=== PATIENT | female | born 1940 | race Caucasian/White ===

== ENCOUNTER 2018-01-08 10:39 | Inpatient (IN) | payer OTHER, MEDICARE ==
[~2018-01-08] VITALS: Ht 152.4 cm; Wt 83.9 kg
[~2018-01-08 10:39] MED LIST: ALLOPURINOL100 M1 PO; AMLODIPINE BES2.5 M1 PO; AUGMENTIN 875 M1 TAB PO; AVAPRO300 M1 PO; CARVEDILOL12.5 M1 PO; CARVEDILOL25 M1 PO; CARVEDILOL3.125 MG PO; COREG 3.125M3.125 MG PO; COREG 6.256.25 MG PO; DESITIN MAXIMUM S40% TOP; ELIQUIS5 M1 PO; KEY-E1 CRE PO; LASIX20 MG PO; LASIX40 M1 PO; LEVOTHYROXINE0.15 M1 PO; LEVOTHYROXINE175 MCG PO; LIPITOR40 M1 PO; MYCOSTATIN POWD15 GM TOP; NORVASC5 M1 PO; OMEPRAZOLE20 M2 PO; OMEPRAZOLE20 MG PO; POTASSIUM CHLO20 ME2 PO; TYLENOL XSTR500 MG PO; XARELTO20 M2 PO
[2018-01-08 11:30] LABS: ABSOLUTE BASOPHIL COUNT 0 /CUMM (0.0-0.2); ABSOLUTE EOSINOPHIL COUNT 0 /CUMM (0.0-0.7); ABSOLUTE GRANULOCYTE CT 3.4 /CUMM (1.4-6.5); ABSOLUTE LYMPH COUNT 1.3 /CUMM (1.2-3.4); ABSOLUTE MONOCYTE COUNT 0.5 /CUMM (0.10-0.60); BASOPHIL % 0.9 % (0.0-2.0); EOSINOPHIL % 0.3 % (0-5); GRANULOCYTE % 65.6 % (42.2-75.2); HEMATOCRIT 34.3 % (37-47); MEAN CORPUSCULAR HGB CONC 32.5 G/DL (33.0-37.0); MEAN CORPUSCULAR VOLUME 92.2 FL (81.0-99.0); MEAN PLATELET VOLUME 8.7 FL (7.4-10.4); PLATELET COUNT 173 /CUMM (130-400); RBC DISTRIBUTION WIDTH 19.2 % (11.5-14.5); RED BLOOD CELL CT 3.72 /CUMM (4.20-5.40); WHITE BLOOD CELL COUNT 5.2 /CUMM (4.8-10.8)
[2018-01-08] MEDS ORDERED: ATORVASTATIN CA40 M1 PO (12:06)
--- NOTE | 2018-01-08 12:12 | ED CARDIAC/CP/PALPITATIONS ---
History of Present Illness General Chief Complaint: Chest Pain Stated Complaint: BIBA CP SINCE SEP Source: patient, old records, friend (engagement mgr) Exam Limitations: no limitations Vital Signs & Intake/Output Vital Signs & Intake/Output Vital Signs Date Time Temp Pulse Resp B/P B/P Pulse O2 O2 Flow FiO2 Mean Ox Delivery Rate 01/08 1433 97.1 93 18 142/94 96 Room Air 01/08 1059 98.2 89 16 139/95 97 Room Air Allergies Coded Allergies: Estrogens ("GET WACKY" 01/26/16) Reconcile Medications Allopurinol 100 MG TABLET 1 TAB PO DAILY KIDNEY STONES (Reported) Amlodipine Besylate 2.5 MG TABLET 1 TAB PO QPM Hypertension (Reported) Apixaban (Eliquis) 5 MG TABLET 1 TAB PO BID PE Atorvastatin Calcium (Lipitor) 40 MG TABLET 1 TAB PO DAILY CHOLESTEROL ( Reported) Carvedilol 25 MG TABLET 25 MG PO BID a-fib Furosemide (Lasix) 40 MG TABLET 1 TAB PO DAILY WATER RETENTION (Reported) Irbesartan (Avapro) 300 MG TABLET 1 TAB PO DAILY HEART (Reported) Levothyroxine Sodium 175 MCG TABLET 1 TAB PO DAILY AC THYROID (Reported) Omeprazole 20 MG CAPSULE.DR 1 CAP PO DAILY ACID REFLUX (Reported) Core Measure Meds Pre-Hospital Eliquis Triage Note: PT BIBA FROM RIGHT SIDED CP. STATES THAT THE PAIN HAS BEEN PERSISTENT SINCE SEPTEMBER AND THAT THEY CONTRIBUTE IT TO HER GALLBLADDER. FELT SLIGHT SOB INITIALLY WITH EMS, PUT ON 2L O2 VIA NC. RA SAT 97%. PA STUDENT TO [facility] ON ARRIVAL. Triage Nurses Notes Reviewed? yes Onset: 4 months Duration: week(s):, continues in ED, intermittent Timing: recent history Quality/Severity: mild, moderate, pressure Location: epigastric Radiation: no radiation Activities at Onset: none Modifying Factors: Improves With: rest. Nitro Today/Relief: no nitro taken today Aspirin Today: no aspirin today Associated Symptoms: abdominal pain LMP (ages 10-50): post menopausal : No Patient currently breastfeeds: No HPI: 3 months prior to admission patient complains of episodic intermittent right lower chest / right upper quadrant pain radiating to right shoulder described as achy moderate to severe associated with increased gas. She denies fever chills nausea vomiting diarrhea chest pain cough shortness of breath headache dysuria rash bleeding. Past History Travel History Traveled to [place] past 21 day No Medical History Any Pertinent Medical History? 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 MOTHER FH: atrial fibrillation Relation not specified for: *No pertinent family history Hx Contributory? No Review of Systems Review of Systems Constitutional: Reports: no symptoms. EENTM: Reports: no symptoms. Respiratory: Reports: no symptoms. Cardiovascular: Reports: see HPI, chest pain. GI: Reports: see HPI, abdominal pain. Genitourinary: Reports: no symptoms. Musculoskeletal: Reports: no symptoms. Skin: Reports: no symptoms. Neurological/Psychological: Reports: no symptoms. Hematologic/Endocrine: Reports: no symptoms. Immunologic/Allergic: Reports: no symptoms. All Other Systems: Reviewed and Negative Physical Exam Physical Exam General Appearance: well developed/nourished, alert, awake, anxious, moderate distress, obese Head: atraumatic, normal appearance Eyes: Bilateral: normal appearance, PERRL, EOMI. Ears, Nose, Throat: normal pharynx, normal ENT inspection, hearing grossly normal Neck: normal inspection, supple, full range of motion, no midline tenderness Respiratory: chest non-tender, no respiratory distress, quiet respiration, decreased breath sounds, rhonchi Cardiovascular: normal peripheral pulses, irregularly irregular, norml femoral pulses equa Peripheral Pulses: 4+ carotid (R), 4+ carotid (L) Gastrointestinal: soft, abnormal bowel sounds, tenderness Back: normal inspection, normal range of motion, no vertebral tenderness Extremities: normal inspection, normal capillary refill, normal range of motion, no edema, no ligament instability Neurologic/Psych: no motor/sensory deficits, awake, alert, oriented x 3, normal mood/affect, scrap wheeler II-XII nml as tested Reflexes: 2+: bicep (R), bicep (L). Skin: intact, normal color, warm/dry Core Measures ACS in differential dx? Yes No ASA d/t Pharmacological CI CVA/TIA Diagnosis No Sepsis Present: No Sepsis Focused Exam Completed? No Progress Differential Diagnosis: AMI, CHF/pulm edema, musculoskeletal pain, pancreatitis, pneumonia, pneumothorax Plan of Care: Orders Procedure Date/time Status Heart Healthy Diet 01/08 D Active Pathway - chart 01/08 1812 Active House Staff 01/08 1812 Active Patient Data 01/08 1812 Active Code Status 01/08 1812 Active Add-on Test (ER Only) 01/08 1735 Active Patient Data 01/08 1718 Active OXYGEN SETUP (GEN) 01/08 1643 Active Saline Lock 01/08 1643 Active Admit to inpatient 01/08 1643 Active Vital Signs 01/08 1643 Active Activity/Ambulation 01/08 1643 Active Code Status 01/08 1643 Complete BLOOD CULTURE 01/08 1640 Active Intake & Output 01/08 1203 Active THYROID STIMULATING HORMONE 01/08 1115 Active PHOSPHORUS 01/08 1115 Active MAGNESIUM 01/08 1115 Active B-TYPE NATRIURETIC PEP (BNP) 01/08 1115 Active Add-on Test (ER Only) 01/08 1104 Active TROPONIN LEVEL 01/08 1048 Active LIPASE 01/08 1048 Active COMPREHENSIVE METABOLIC PANEL 01/08 1048 Active CBC WITHOUT DIFFERENTIAL 01/08 1048 Complete EKG 01/08 1048 Active VTE Mechanical Prophylaxis 01/08 UNK Active Current Medications Sig/Nyasia Start time Last Medication Dose Stop Time Status Admin Famotidine 20 MG ONCE ONE 01/08 1115 CAN (Pepcid) 01/08 1116 Metoclopramide HCl 5 MG ONCE ONE 01/08 1115 CAN (Reglan) 01/08 1116 Laboratory Tests 01/08/18 1115: Anion Gap 8, Estimated GFR > 60, BUN/Creatinine Ratio 32.5 H, Glucose 97, Calcium 8.6, Phosphorus 3.9, Magnesium 1.6, Total Bilirubin 0.5, AST 15, ALT 20, Alkaline Phosphatase 98, Troponin I < 0.01, Etk-R-[id number] Pept Pending, Total Protein 6.6, Albumin 3.3 L, Globulin 3.3, Albumin/Globulin Ratio 1.0 L, Lipase 109, TSH Pending, CBC w Diff NO MAN DIFF REQ, RBC 3.72 L, MCV 92.2, MCH 30.0, MCHC 32.5 L, RDW 19.2 H, MPV 8.7, Gran % 65.6, Lymphocytes % 24.0, Monocytes % 9.2, Eosinophils % 0.3, Basophils % 0.9, Absolute Granulocytes 3.4, Absolute Lymphocytes 1.3, Absolute Monocytes 0.5, Absolute Eosinophils 0, Absolute Basophils 0 Microbiology 01/08 1715 BLOOD: Blood Culture - RECD 01/08 165 BLOOD: Blood Culture - RECD Diagnostic Imaging: Viewed by Me: Radiology Read. Discussed w/RAD: Radiology Read. CXR Impression: Small right hydropneumothorax. Trace left basilar atelectasis. Initial ED EKG: AFIB, no ST T wave changes Prior EKG: unchanged Rhythm Strip: atrial fibrillation Comments: Repeat CXR without change in PTx. Departure Departure Disposition: STILL A PATIENT Condition: Stable Clinical Impression Primary Impression: Hydropneumothorax Referrals: Kathy CAPUTO,Josiah Montejo (PCP/Family) Departure Forms: Customer Survey General Discharge Information Admission Note Spoke With: Jayant CAPUTO,Odilia Del Cid Documentation of Exam: Documentation of any treatments & extenuating circumstances including Concerns Regarding Discharge (functional status, medication knowledge or non-compliance, living conditions, etc.) that warrant an admission rather than observation: IV antibiotics follow cultures thoracentesis pulmonary evaluation medication adjustment continuing care discharge planning Critical Care Note Critical Care Note Critical Care Time: non-applicable
--- NOTE | 2018-01-08 12:35 | RADIOLOGY REPORT ---
EXAMINATION: XR CHEST CLINICAL INFORMATION: Chest pain COMPARISON: 09/28/2017 TECHNIQUE: 2 views of the chest were obtained. FINDINGS: There is a small right apical pneumothorax. There is a small right basilar pleural effusion, likely with a component of adjacent atelectasis. Right basilar aeration has overall improved from 09/28/2017. There is trace linear atelectasis at the left lung base. No overt pulmonary edema. The cardiac silhouette is enlarged. No acute osseous findings are seen. IMPRESSION: Small right hydropneumothorax. Trace left basilar atelectasis. This critical result was discussed with Vitor Awad on 01/08/2018 12:31 PM, and it was ascertained that the content and urgency of the report was understood at the time of direct communication.
--- NOTE | 2018-01-08 16:10 | RADIOLOGY REPORT ---
EXAMINATION: XR CHEST CLINICAL INFORMATION: Follow-up right apical pneumothorax COMPARISON: Chest x-ray from earlier today TECHNIQUE: 2 views of the chest were obtained. FINDINGS: There is a redemonstrated small right apical pneumothorax, without significant change from today's earlier exam. Small right basilar pleural effusion is also seen, with overall findings consistent with hydropneumothorax. Subsegmental atelectasis is present at the left lung base. No overt pulmonary edema. The cardiac silhouette remains enlarged. No acute osseous findings are seen. IMPRESSION: Small right hydropneumothorax, without significant change from today's earlier exam.
--- NOTE | 2018-01-08 17:30 | History & Physical ---
Bryant Randle MD 01/08/18 5145: General Information and HPI MD Statement: I have seen and personally examined BRITTANY STOVALL and documented this H&P. The patient is a 77 year old F who presented with a patient stated chief complaint of right sided chest pain. Source of Information: patient, old records Exam Limitations: no limitations History of Present Illness: 77 year old female with past medical history significant for paroxysmal atrial fibrillation on Xarelto, HFpEF, ESTEFANIA on CPAP, moderate TR and pulmonary hypertension, HTN, HLD, GERD, and tongue cancer s/p resection and chemoradiotherapy (Dr. Silva ) presented with sudden onset right sided chest pain yesterday. The patient was last hospitalized in September 2017 with sepsis secondary to severe acute on chronic cholecystitis with subhepatic abscess found between the gallbladder and liver during cholecystectomy, afib with RVR, and acute right pulmonary embolism. After discharge the patient went to rehabiliation at [facility] and was feeling better subjectively. The patient was then treated there for a right sided pneumonia in October 2017. The patient then returned to her usual state of health until yesterday afternoon when she suddenly developed right sided chest pain while sitting and watching. It was sudden onset, intermittent, 5-6 in severity, aching and squeezing, and radiating up towards her right shoulder. Her pain was aggravated by deep respiration and moderately relieved with Tylenol. She was able to take tylenol in the evening and go to sleep. At 1AM, she woke up with the pain, took another dose of tylenol and returned to bed. In the morning, her pain had become severe, 9/10. Her home health aide had her call her it solutions sales consultant, Dr. Abdias Sweeney, and then she came to the ED for evaluation. Her pain was not associated with exertion, position, or eating. She did report some mild headache and palpitations. She does report some new dyspnea. Review of systems is otherwise negative. In the ED, her vitals were normal. She was placed on 2L NC for comfort. Her chest x-ray showed a small right hydropneumothorax. Labs were unremarkable. She was treated with ceftriaxone, azithromycin, tramadol, reglan, and pepcid. Allergies/Medications Allergies: Coded Allergies: Estrogens ("GET WACKY" 01/26/16) Home Med list Allopurinol 100 MG TABLET 1 TAB PO DAILY KIDNEY STONES (Reported) Amlodipine Besylate 2.5 MG TABLET 1 TAB PO QPM Hypertension (Reported) Apixaban (Eliquis) 5 MG TABLET 1 TAB PO BID PE Atorvastatin Calcium (Lipitor) 40 MG TABLET 1 TAB PO DAILY CHOLESTEROL ( Reported) Carvedilol 25 MG TABLET 25 MG PO BID a-fib Furosemide (Lasix) 40 MG TABLET 1 TAB PO DAILY WATER RETENTION (Reported) Irbesartan (Avapro) 300 MG TABLET 1 TAB PO DAILY HEART (Reported) Levothyroxine Sodium 175 MCG TABLET 1 TAB PO DAILY AC THYROID (Reported) Omeprazole 20 MG CAPSULE.DR 1 CAP PO DAILY ACID REFLUX (Reported) Compliance With Home Meds: GOOD Past History Travel History Traveled to [place] past 21 day No Medical History Neurological: NONE EENT: NONE Cardiovascular: AFIB, CHF, hypertension, hyperlipidemia Respiratory: obstructive sleep apnea Gastrointestinal: GERD Hepatic: hepatic steatosis Renal: NONE Musculoskeletal: NONE Psychiatric: NONE Endocrine: hypothyroidism Blood Disorders: NONE 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 MOTHER FH: atrial fibrillation Relation not specified for: *No pertinent family history Psychosocial History Services at Home: None Functional Ability ADLs Independent: dressing, eating, toileting, bathing. Ambulation: independent, cane Review of Systems Review of Systems Constitutional: Denies: chills, diaphoresis, fever. EENTM: Reports: no symptoms. Cardiovascular: Reports: chest pain, palpitations, peripheral edema. Respiratory: Reports: cough, short of breath. Denies: hemoptysis, orthopnea, sputum production. GI: Reports: bloating. Denies: constipation, diarrhea, melena, nausea, vomiting. Genitourinary: Reports: no symptoms. Musculoskeletal: Reports: no symptoms. Skin: Reports: no symptoms. Neurological/Psychological: Reports: no symptoms. Hematologic/Endocrine: Reports: no symptoms. Immunologic/Allergic: Reports: no symptoms. All Other Systems: Reviewed and Negative Exam & Diagnostic Data Last 24 Hrs of Vital Signs/I&O Vital Signs Date Time Temp Pulse Resp B/P B/P Pulse O2 O2 Flow FiO2 Mean Ox Delivery Rate 01/08 1433 97.1 93 18 142/94 96 Room Air 01/08 1059 98.2 89 16 139/95 97 Room Air Physical Exam General Appearance Alert, Oriented X3, Cooperative, No Acute Distress Cardiovascular Normal S1, Normal S2, No Murmurs, irregularly irregular Lungs diminished breath sounds particularly bibasilar Abdomen Normal Bowel Sounds, Soft, No Tenderness, No Masses Extremities No Clubbing, No Cyanosis, Normal Pulses, 1+ pitting edema b/l Last 24 Hrs of Labs/Linus: Laboratory Tests 01/08/18 1115: Anion Gap 8, Estimated GFR > 60, BUN/Creatinine Ratio 32.5 H, Glucose 97, Calcium 8.6, Phosphorus 3.9, Magnesium 1.6, Total Bilirubin 0.5, AST 15, ALT 20, Alkaline Phosphatase 98, Troponin I < 0.01, Fzp-Q-Resrezdmlpt Pept 3660 H, Total Protein 6.6, Albumin 3.3 L, Globulin 3.3, Albumin/Globulin Ratio 1.0 L, Lipase 109, TSH Pending, CBC w Diff NO MAN DIFF REQ, RBC 3.72 L, MCV 92.2, MCH 30.0, MCHC 32.5 L, RDW 19.2 H, MPV 8.7, Gran % 65.6, Lymphocytes % 24.0, Monocytes % 9.2, Eosinophils % 0.3, Basophils % 0.9, Absolute Granulocytes 3.4, Absolute Lymphocytes 1.3, Absolute Monocytes 0.5, Absolute Eosinophils 0, Absolute Basophils 0 Microbiology 01/08 1715 BLOOD: Blood Culture - RECD 01/08 1655 BLOOD: Blood Culture - RECD Diagnostic Data EKG Results EKG LAFB, afib HR 88 qtc 470 CXR Results There is a redemonstrated small right apical pneumothorax, without significant change from today's earlier exam. Small right basilar pleural effusion is also seen, with overall findings consistent with hydropneumothorax. Subsegmental atelectasis is present at the left lung base. No overt pulmonary edema. Other Results Technically difficult study. Normal global left ventricular size, wall thickness, systolic function with no obvious regional wall motion abnormalities. Left ventricular ejection fraction is estimated at 55 %. Mild right atrial dilatation. Mild left atrial dilatation. Mild mitral stenosis. Mild by limited Echo. Moderate tricuspid regurgitation. Right ventricular systolic pressure estimated to be elevated at > 55 mmHg. Assessment/Plan Assessment: 77 year old female with past medical history significant for paroxysmal atrial fibrillation on Xarelto, HFpEF, ESTEFANIA on CPAP, moderate TR and pulmonary hypertension, HTN, HLD, GERD, and tongue cancer s/p resection and chemoradiotherapy presented with sudden onset right sided chest pain yesterday. Chest pain: Small right hydropneumothorax on chest x-ray Troponin negative, no ischemic EKG changes, repeat to rule out myocardial ischemia h/o malignancy with abnormal chest CT in 09/2017 h/o subhepatic abscess/cholecystitis s/p laparoscopic cholecystectomy Evaluate with CT Chest with IV contrast Possible mets? h/o malignancy Consult CT surgery for possible thoracentesis and cytology Previous CT showed several subcentimeter nodules and right pulmonary embolism PE less likely with anticoagulation, but check LE doppler because of asymmetric edema Consider holding eliquis or converting to heparin gtt if patient will need thoracentesis TRC evaluation, h/o smoking, quit 1983 ESTEFANIA: Avoid CPAP for now given pneumothorax Pulmonology consult HFpEF: Continue lasix, coreg, tanya, HTN: Continue meds as above Hypothyroidism: Continue synthroid Atrial fibrillation: Contine eliquis and coreg HLD: Continue statin therapy Heart healthy diet DVT ppx-on eliquis Full code As Ranked By This Provider Problem List: 1. Hydropneumothorax 2. Dyspnea 3. Pulmonary embolism 4. Subhepatic abscess 5. S/P cholecystectomy Core Measures/Misc (07/30) Acute Coronary Syndrome ACS Diagnosis: No Congestive Heart Failure Congestive Heart Failure Diagnosis No Cerebrovascular Accident CVA/TIA Diagnosis: No VTE (View Protocol) VTE Risk Factors Age>40 No Mechanical VTE Prophylaxis d/t N/A MechProphylax Ordered No VTE Pharm Prophylaxis d/t NA PharmProphylax ordered Sepsis (View protocol) Sepsis Present: No Abdirahman CAPUTO,[facility] 01/08/18 1813: Resident Review Statement Resident Statement: examined this patient, discussed with ad operations intern, agreed with ad operations intern Other Findings: 76-year-old female with a PMH of A. 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 The patient was treated for pneumonia on October 2017, her symptom improved and she was symptom-free until yesterday when she started to complain of anterior lower right chest pain, the pain was tolerable with Tylenol, so patient did not seek medical attention. Earlier this morning patient woke up with 9/10, aching, squeezing, anterior right sided chest pain. Pain partially relieved by Tylenol and worsen by deep breath. She reports mild headache, dyspnea, and palpitation. The rest of review of system was negative. The patient denies any recent trauma, cough, intubation, or procedures. On admission patient was afebrile, hemodynamically stable, saturating upper 90s on room air. Labs were significant for Hemoglobin 11, potassium 3.5, BNP 3660. Chest x-ray revealed Small right hydropneumothorax. Assessment: 76-year-old female who presented with 1 day of right side chest pain was found to have small right lung hydropneumothorax. She is hemodynamically stable. The patient had history of tongue squamous cell carcinoma. She also had a history of multiple lung nodules that was seen [address] and was recommended to repeat CT in 6 months. The patient also had a history of obstructive sleep apnea for which she uses CPAP at night. The cause for pneumothorax is not currently clear, however she had a multiple risk factor including recent pneumonia, lung nodules, and nocturnal CPAP. Plan: #Pneumothorax * Patient will be monitoring general medicine floor * We will hold nocturnal CPAP and start nasal oxygen * We will repeat chest CT to follow-up nodules * We will consult cardiothoracic surgery * We will consult pulmonology(Dr. Calero) #Questionable lower extremity DVT * We will order lower extremity Doppler #For chronic conditions including A. fib, hypothyroidism, hypertension, hyperlipidemia, gout and GERD. * We will continue home medication including * Apixaban * carvedilol * Levothyroxin (we will check TSH) * TANYA inhibitor * Omeprazole * Statin Brannon CAPUTO, [facility] 01/09/18 0218: Attending MD Review Statement Attending Statement Attending MD Statement: examined this patient, discuss w/resident/PA/ADVANCED PRACTICE PROFESSIONAL, agreed w/resident/PA/ADVANCED PRACTICE PROFESSIONAL, reviewed images, amended to note Attending Assessment/Plan: 77 yo F with h/o Afib/ PE on eliquis, ex-smoker, HfpEF, ESTEFANIA on CPAP, chronic hypercarbia, tongue SSC s/p resection and chemoradiation (2008-), is here for right sided pleuritic chest pain radiating to the shoulder, associated with dyspnea that started 1 day prior to admission. She denies cough, URI symptoms, wheezing, palpitations or lightheadedness. Last admitted to [place] (Jul 2017) for cholecystitis with abscess, complicated by Afib and PE, recovered at short term rehab and most recently treated for a pneumonia (outpatient) with antibiotics. Patient was sent to CT and she became dyspenic and hypoxic to 88% RA --> 95% on 2L. She reported she could not lay down flat for too long, she usually sleeps with 2 pillows. She was also hypertensive to 154/90, HR in 120-130's. Vitals: afebrile, HR 90-120's, BP 154/90, sats 96% on 2L. Exam: AAO, in mild respiratory distress, MMM, Neck supple, Chest b/l reduced air entry but no wheeze or rhonchi, Heart S1S2 irregularly irregular, Abd soft, NT. LE 1+ pedal edema L>R. Labs: bicarb 36, trop neg, proBNP 3660. LE doppler: no DVT. CXR: small right hydropneumothorax. CT chest: trace right pneumothorax, small right pleural effusion+, left pleural effusion has resolved. Mild to mdoerate centrilobular emphysema and few pulmonary nodules. EKG: Afib @ 88, nonspecific T wave changes, Qtc 470. Repeat EKG at 9 pm HR 135 Afib with RVR. Echo (2017): EF 55%, mild MS, moderate TR, elevated RVSP. Assessment and plan: 1. Acute hypoxic respiratory failure 2. Afib with RVR transient resolved 3. Right sided chest pain 4. Right small hydropneumothorax 2/2 bleb 5. Emphysema with no evidence of exacerbation 6. HfpEF and ESTEFANIA on CPAP 7. Lung nodules 8. Elevated proBNP but no evidence of CHF exacerbation - Admit to Telemetry - Monitor for arrhythmias - Serial EKG and troponin to rule out ACS - No need to repeat Echo - Carvedilol was resumed and her HR settled down to 90-100's - If HR persistently elevated at >110's will consider Cardizem drip - Check TSH and free T4 - Consult Cardio (Dr. Brittaney Adams) - Continue lasix at home dose - Consult Pulm (Dr. Varela) and CT surgery (Dr. Cantu) - Hold off on CPAP tonight until cleared by Pulm. - Continue nasal oxygen - TRC nebs - No need for antibiotics - Fluids were initially ordered as she received contrast for CT, however this was discontinued to avoid exacerbating her CHF DVT ppx Maranda. Full code.
--- NOTE | 2018-01-08 19:25 | Admission Certification ---
Admission Certification Certification Statement - As attending physician, I certify that at the time of - admission, based on clinical presentation, severity of - symptoms, need for further diagnostic testing and - therapeutic interventions, and risk of adverse outcomes - without in-hospital treatment, in my clinical assessment, - this patient requires an acute hospital stay for a minimum - of two nights or longer. I have also considered psychsocial - factors such as support system, advanced age, financial - issues, cognitive issues, and failed out-patient treatments, - past re-admission history, safety of patient, and lack of - compliance as applicable. Specific rationale supporting this admission is: Right sided chest pain, right apical pneumothorax, right pleural effusion needs further evaluation, Pulm and CT surgery consults.
--- NOTE | 2018-01-08 21:30 | CT SCAN REPORT ---
EXAMINATION: CT CHEST WITH CONTRAST CLINICAL INFORMATION: Pneumothorax and follow-up lung mass. COMPARISON: Multiple prior studies, the most recent dated 09/28/2017. TECHNIQUE: Multidetector volumetric CT imaging of the chest was obtained after the administration of 95 mL of Optiray 320 intravenous contrast without immediate adverse reactions. Axial MIP volume rendering provided. Sagittal and coronal reformatted images were obtained. DLP: 371 mGy-cm FINDINGS: LUNGS: There is a trace right pneumothorax possibly related to a bleb or recent biopsy. There is [id number] centrilobular emphysema. There are several pulmonary nodules including an 8 x 4 mm nodule in the anterior aspect of the right upper lobe and a 7 x 4 mm nodule in the right upper lobe near the minor fissure which appears similar; a 7 mm ground-glass nodule at the left lung apex which is less conspicuous; and a few smaller parenchymal nodules which appears similar. Atelectasis or ill-defined areas of consolidation at the lung bases have improved. MEDIASTINUM: Mild cardiomegaly with biatrial enlargement. No pericardial effusion. PLEURA: There is a small right pleural effusion which is similar. The left pleural effusion has resolved. AXILLA: No lymphadenopathy. UPPER ABDOMEN: Unremarkable. OSSEOUS STRUCTURES: Unremarkable. IMPRESSION: 1. There is a trace right pneumothorax. 2. There is a small right pleural effusion which is similar. The left pleural effusion has resolved. Basilar atelectasis/consolidation is slightly improved. 3. There is [id number] centrilobular emphysema and a few pulmonary nodules as detailed in the comments, the majority of which appear stable. A ground-glass nodule at the left lung apex is less conspicuous.
[2018-01-08 22:37] VITALS: BP 128/70
--- NOTE | 2018-01-08 22:49 | ULTRASOUND REPORT ---
EXAMINATION: US TRIPLEX OF LOWER EXTREMITIES, BILATERAL CLINICAL INFORMATION: Bilateral lower extremity edema and swelling COMPARISON: None TECHNIQUE: Color-flow triplex imaging with spectral analysis and compression Doppler were performed on the bilateral lower extremities. FINDINGS: Respiratory variation, normal compression and augmented flow are noted throughout the lower extremities. The visualized common femoral vein, superficial femoral vein, profunda femoral vein, popliteal vein and midcalf peroneal and posterior tibial venous segments show no evidence of deep venous thrombosis. There is no Hinojosa's cyst. IMPRESSION: Normal triplex scan without evidence of deep venous thrombosis involving the bilateral lower extremities.
[2018-01-09 07:06] VITALS: BP 142/82
--- NOTE | 2018-01-09 07:29 | PN- Housestaff ---
Alex CAPUTO,[facility] 01/09/18 0728: Subjective Follow-up For: Pleuritic chest pain Right hydropneumothorax Complaints: pain scale (0-10) (4-5/10) Tele-Events Since Last Visit: Atrial fibrillation. Heart rate 70-90 beats minute. Had an episode of rapid ventricular rate in the ER on admission but no events overnight. Subjective: Ms. Pritchard complains of chest pain that she rates as 4/10 intensity in her right chest that is worse with deep inspiration. She denies shortness of breath, cough , fevers, chills or malaise. She denies palpitations, lightheadedness, but has orthopnea which is chronic and unchanged. Review of Systems Constitutional: Denies: chills, fever, malaise, weakness. EENTM: Denies: nasal congestion, epistaxis. Cardiovascular: Reports: chest pain. Denies: edema, palpitations, syncope. Respiratory: Denies: cough, hemoptysis, orthopnea, short of breath, sputum production. Gastrointestinal: Denies: abdominal pain, constipation, diarrhea, bloody stool, vomiting. Genitourinary: Denies: dysuria, frequency. Objective Last 24 Hrs of Vital Signs/I&O Vital Signs Date Time Temp Pulse Resp B/P B/P Pulse O2 O2 Flow FiO2 Mean Ox Delivery Rate 01/09 1431 97.8 90 20 138/90 99 Nasal 2.0L Cannula 01/09 1354 Nasal 2.0L Cannula 01/09 1218 86 150/80 01/09 0957 78 150/80 01/09 0800 Nasal 2.0L Cannula 01/09 0706 98.6 88 20 142/82 98 Nasal Cannula 01/08 2302 93 Nasal 2.0L Cannula 01/08 2237 98.0 103 20 128/70 91 01/08 2153 98.6 121 20 152/88 98 Nasal 2.0L Cannula 01/08 2106 98.2 86 20 154/90 01/08 2040 98.2 126 20 154/90 96 Nasal 2.0L Cannula 01/08 1930 98.5 105 18 155/88 94 Room Air Room Air Intake & Output 01/09 1600 01/09 0800 01/09 0000 Intake Total 560 150 Output Total 400 350 Balance 560 -250 -350 Intake, Oral 560 150 Output, Urine 400 350 Patient 185 lb Weight Weight Reported by Patient Measurement Method Physical Exam General Appearance: Alert, Oriented X3, Cooperative, No Acute Distress Skin: No Rashes, No Breakdown, No Significant Lesion Skin Temp/Moisture Exam: Warm/Dry Sepsis Skin Exam (color): Normal for Ethnicity HEENT: Atraumatic, PERRLA, EOMI, Mucous Membr. moist/pink Neck: Supple, No JVD, No thryomegaly Lymphatic: Cervical nl Cardiovascular: Regular Rate, Normal S1, Normal S2, No Murmurs Lungs: Clear to Auscultation, Normal Air Movement Abdomen: Normal Bowel Sounds, Soft, No Tenderness, No Hepatospenomegaly, No Masses Neurological: Normal Speech, Strength at 5/5 X4 Ext, Normal Tone, Cranial Nerves 3-12 NL Extremities: No Edema, Normal Pulses Vascular: Normal Pulses Current Medications: Current Medications Sig/Nyasia Start time Last Medication Dose Route Stop Time Status Admin Acetaminophen 650 MG Q4P PRN 01/09 0945 AC PO Allopurinol 100 MG DAILY 01/09 1000 AC 01/09 PO 0958 Apixaban 5 MG BID 01/08 2200 AC 01/09 PO 0957 Atorvastatin Calcium 40 MG 1700 01/09 1700 AC PO Azithromycin 500 MG ONCE ONE 01/08 1645 DC 01/08 Dextrose/Water 250 ML IV 01/08 1744 2030 Carvedilol 25 MG BID 01/08 2200 AC 01/09 PO 0957 Ceftriaxone Sodium 0 .STK-MED ONE 01/08 2026 DC .ROUTE Ceftriaxone Sodium 1,000 MG ONCE ONE 01/08 1645 DC 01/08 IV 01/08 1646 2030 Furosemide 40 MG DAILY 01/09 1000 AC 01/09 PO 0957 Levothyroxine Sodium 0.15 MG DAILY AC 01/10 0700 AC PO Levothyroxine Sodium 0.175 MG DAILY AC 01/09 0700 DC 01/09 PO 0532 Losartan Potassium 50 MG DAILY 01/09 1015 AC 01/09 PO 1218 Losartan Potassium 100 MG DAILY 01/09 1000 DC PO Morphine Sulfate 2 MG Q4P PRN 01/09 0945 AC IV Omeprazole 20 MG DAILY 01/09 1000 AC 01/09 PO 0533 Potassium Chloride 40 MEQ AT BEDTIME 01/09 2200 AC PO 01/09 2201 Potassium Chloride 60 MEQ ONCE ONE 01/09 1100 DC 01/09 PO 01/09 1101 1217 Sodium Chloride 500 ML ONCE ONE 01/08 2100 DC 01/08 IV 01/09 0659 2300 Sodium Chloride 500 ML BOLUS ONE 01/08 2030 CAN IV 01/09 0629 Last 24 Hrs of Lab/Linus Results Last 24 Hrs of Labs/Mics: Laboratory Tests 01/09/18 0619: Anion Gap 10, Estimated GFR > 60, BUN/Creatinine Ratio 27.1 H, Troponin I < 0.01, CBC w Diff NO MAN DIFF REQ, RBC 3.63 L, MCV 92.5, MCH 29.7, MCHC 32.1 L, RDW 19.9 H, MPV 9.2, Gran % 63.4, Lymphocytes % 25.5, Monocytes % 9.6 H, Eosinophils % 1.2, Basophils % 0.3, Absolute Granulocytes 3.3, Absolute Lymphocytes 1.3, Absolute Monocytes 0.5, Absolute Eosinophils 0.1, Absolute Basophils 0 01/08/18 2330: Troponin I < 0.01 Microbiology 01/08 1715 BLOOD: Blood Culture - RES 01/08 1655 BLOOD: Blood Culture - RES Assessment/Plan Assessment: Ms. Pritchard is a 77 year old woman with past medical history significant for paroxysmal atrial fibrillation on Xarelto, HFpEF, ESTEFANIA on CPAP, moderate TR and pulmonary hypertension, HTN, HLD, GERD, and tongue cancer s/p resection and chemoradiotherapy (Dr. Silva ) who presented with sudden onset right sided chest pain while she was sitting at rest. She was hypoxemic to 88% on room air while going to her CT scan and had to be placed on oxygen by nasal canula 2L. Her chest X-ray and chest CT imaging shows an old right sided effusiona and a new small right pneumothorax. She had a transient episode of rapid ventricular rate in the ER that occured in the setting of late administration of her carvedilol. She is being evaluated and managed for a spontaneous pneumothorax probably related to rupture of emphysematous bleb. Assessment and plan: 1. Acute hypoxic respiratory failure * Continue oxygen by intranasal canula to keep O2 sat >92% 2. Right sided chest pain secondary to small hydropneumothorax- likely from rupture of emphysematous bleb * Pulmonology business solutions consultant input appreciated * Awaiting cardiothoracic surgery review * Pain control with tylenol prn and IV morphine for severe pain * Repeat chest X-ray in 24 hours to assess interval change or stability 3. Afib with transient rapid ventricular rate-resolved * RVR occured in the setting of delayed medication administration * Will replete hypokalemia of 3.3 * Add on magnesium level and replete as needed * Continue carvedilol 25 mg BID, and continue anticoagulation with eliquis * Serial EKG's and troponins negative for an acute coronary syndrome * TSH low 0.039, Free T4 normal * Cardiology consultation pending 4. Emphysema with no evidence of exacerbation * Stable for now continue to monitor 5. Heart failure with preserved ejection fraction * Continue PO lasix 40 mg daily * ProBNP is elevated at 3660, but patient is not clinically in heart failure 6. ESTEFANIA on CPAP * Patient can have CPAP at night 7. Lung nodules * Stable appearance * Outpatient follow up with cardiothoracic surgeon, Dr. Cantu 8. Hypothyroidism * TSH low 0.039, Free T4 normal * Will reduce synthroid dose to 0.15 mg daily DVT prophylaxis PO Apixaban Diet Heart Healthy diet Code status Patient is full code Problem List: 1. Hydropneumothorax 2. Hypertension 3. Atrial fibrillation with RVR Pain Ratin Pain Location: Right chest Pain Goal: Pain 4 or less Pain Plan: Tylenol PRN Tomorrow's Labs & Rationales: BEP for electrolytes DVT/Prophylaxis: pharmacological Sara CAPUTO,Dieter 01/09/18 1009: Attending MD Review Statement Attending Statement Attending MD Statement: examined this patient, discuss w/resident/PA/EPIDEMIOLOGY INTERN, agreed w/resident/PA/EPIDEMIOLOGY INTERN, reviewed EMR data (avail), discussed with nursing, discussed with case mgmt, amended to note Attending Assessment/Plan: Patient seen and examined. Lying comfortably in bed and not in any acute distress. No issues overnight. Currently reports mild right-sided chest pain. Pain is 3-4/5 in intensity. Denies shortness of breath. Denies cough. On examination she has adequate entry bilaterally. Abdomen is soft and nontender. She was admitted on account of complaints of right-sided chest pain. Imaging reveals small pneumothorax which appears to have been spontaneous likely related to her emphysematous disease. She has no clinical evidence of an infectious process at present. Pneumothorax is too small in size to warrant any intervention. Pulmonology consultation appreciated. Recommendations: -Awaiting evaluation by the cardiothoracic surgery service. -Pulmonary nodules to be followed up as an outpatient by Galo Varela MD. - She remains in atrial fibrillation however with controlled ventricular response at present. Continue Coreg for rate control. Continue her oral anticoagulant therapy. -Her TSH level is significantly suppressed. Decrease the dose of her Synthroid to 150 mcg daily. She should have a TSH repeated as an outpatient in 4 weeks. She should follow-up with endocrinology service as an outpatient. -Anticipate discharge tomorrow if she remains clinically stable and dequately rate controlled.
[2018-01-09 08:25] LABS: ABSOLUTE BASOPHIL COUNT 0 /CUMM (0.0-0.2); ABSOLUTE EOSINOPHIL COUNT 0.1 /CUMM (0.0-0.7); ABSOLUTE GRANULOCYTE CT 3.3 /CUMM (1.4-6.5); ABSOLUTE LYMPH COUNT 1.3 /CUMM (1.2-3.4); ABSOLUTE MONOCYTE COUNT 0.5 /CUMM (0.10-0.60); BASOPHIL % 0.3 % (0.0-2.0); EOSINOPHIL % 1.2 % (0-5); GRANULOCYTE % 63.4 % (42.2-75.2); HEMATOCRIT 33.5 % (37-47); MEAN CORPUSCULAR HGB 29.7 PG (27.0-31.0); MEAN CORPUSCULAR HGB CONC 32.1 G/DL (33.0-37.0); MEAN CORPUSCULAR VOLUME 92.5 FL (81.0-99.0); MEAN PLATELET VOLUME 9.2 FL (7.4-10.4); PLATELET COUNT 160 /CUMM (130-400); RBC DISTRIBUTION WIDTH 19.9 % (11.5-14.5); RED BLOOD CELL CT 3.63 /CUMM (4.20-5.40); WHITE BLOOD CELL COUNT 5.2 /CUMM (4.8-10.8)
--- NOTE | 2018-01-09 09:30 | Cons- Pulmonary ---
General Information and HPI Consulting Request Date of Consult: 01/09/18 Requested By: Arlene Reason for Consult: Right hydropneumothorax History of Present Illness: Patient is 77-year-old followed for sleep apnea with multiple medical problems admitted with right pleuritic chest pain and found to have a small right hydropneumothorax. She's had a chronic right pneumothorax in the past related to prior hospitalization for sepsis secondary to cholecystitis. Allergies/Medications Allergies: Coded Allergies: Estrogens ("GET WACKY" 01/26/16) Home Med List: Allopurinol 100 MG TABLET 1 TAB PO DAILY KIDNEY STONES (Reported) Amlodipine Besylate 2.5 MG TABLET 1 TAB PO QPM Hypertension (Reported) Apixaban (Eliquis) 5 MG TABLET 1 TAB PO BID PE Atorvastatin Calcium (Lipitor) 40 MG TABLET 1 TAB PO DAILY CHOLESTEROL ( Reported) Carvedilol 25 MG TABLET 25 MG PO BID a-fib Furosemide (Lasix) 40 MG TABLET 1 TAB PO DAILY WATER RETENTION (Reported) Irbesartan (Avapro) 300 MG TABLET 1 TAB PO DAILY HEART (Reported) Levothyroxine Sodium 175 MCG TABLET 1 TAB PO DAILY AC THYROID (Reported) Omeprazole 20 MG CAPSULE.DR 1 CAP PO DAILY ACID REFLUX (Reported) Review of Systems Review of Systems Constitutional: Denies: chills, fever. Cardiovascular: Reports: chest pain. Respiratory: Denies: cough, orthopnea, sputum production. 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 MOTHER FH: atrial fibrillation Relation not specified for: *No pertinent family history Psychosocial History Where Do You Live? Home Services at Home: Home Health Aide Smoking Status: Former Smoker Functional Ability ADLs Independent: dressing, eating, toileting, bathing. Ambulation: independent, cane Exam & Diagnostic Data Last 24 Hrs of Vital Signs/I&O Vital Signs Date Time Temp Pulse Resp B/P B/P Pulse O2 O2 Flow FiO2 Mean Ox Delivery Rate 01/09 0706 98.6 88 20 142/82 98 Nasal Cannula 01/08 2302 93 Nasal 2.0L Cannula 01/08 2237 98.0 103 20 128/70 91 01/08 2153 98.6 121 20 152/88 98 Nasal 2.0L Cannula 01/08 2106 98.2 86 20 154/90 01/08 2040 98.2 126 20 154/90 96 Nasal 2.0L Cannula 01/08 1930 98.5 105 18 155/88 94 Room Air Room Air 01/08 1433 97.1 93 18 142/94 96 Room Air 01/08 1059 98.2 89 16 139/95 97 Room Air Intake & Output 01/09 1600 01/09 0800 01/09 0000 Intake Total 150 Output Total 400 350 Balance -250 -350 Intake, Oral 150 Output, Urine 400 350 Patient 185 lb Weight Weight Reported by Patient Measurement Method Patient is comfortable oxygen saturation 2 L 98% exam for chest shows diminished breath sounds at the bases left lung is clear cardiac exam shows irregular rhythm Last 48 Hrs of Labs/Linus: Laboratory Tests 01/09/18 0619: Anion Gap 10, Estimated GFR > 60, BUN/Creatinine Ratio 27.1 H, Troponin I < 0.01, CBC w Diff NO MAN DIFF REQ, RBC 3.63 L, MCV 92.5, MCH 29.7, MCHC 32.1 L, RDW 19.9 H, MPV 9.2, Gran % 63.4, Lymphocytes % 25.5, Monocytes % 9.6 H, Eosinophils % 1.2, Basophils % 0.3, Absolute Granulocytes 3.3, Absolute Lymphocytes 1.3, Absolute Monocytes 0.5, Absolute Eosinophils 0.1, Absolute Basophils 0 01/08/18 2330: Troponin I < 0.01 01/08/18 1115: Anion Gap 8, Estimated GFR > 60, BUN/Creatinine Ratio 32.5 H, Glucose 97, Calcium 8.6, Phosphorus 3.9, Magnesium 1.6, Total Bilirubin 0.5, AST 15, ALT 20, Alkaline Phosphatase 98, Troponin I < 0.01, Tul-[id number]-Rhtyqepofxc Pept 3660 H, Total Protein 6.6, Albumin 3.3 L, Globulin 3.3, Albumin/Globulin Ratio 1.0 L, Lipase 109, TSH 0.039 L, Free T4 1.73, CBC w Diff NO MAN DIFF REQ, RBC 3.72 L, MCV 92.2, MCH 30.0, MCHC 32.5 L, RDW 19.2 H, MPV 8.7, Gran % 65.6, Lymphocytes % 24.0, Monocytes % 9.2, Eosinophils % 0.3, Basophils % 0.9, Absolute Granulocytes 3.4, Absolute Lymphocytes 1.3, Absolute Monocytes 0.5, Absolute Eosinophils 0, Absolute Basophils 0 Assessment/Plan Impression/Plan: 77-year-old with areas of bullous emphysema sleep apnea carcinoma tongue admitted with right pleuritic chest pain secondary to spontaneous pneumothorax. Right pleural effusion appears chronic. Recommendations: Await CT surgery evaluation but there does not appear to be any indication for intervention. Patient is afebrile with normal white count making empyema unlikely scenario. She will need follow-up for pulmonary nodules in view of history of head and neck cancer Consult Acknowledgment - Thank you for your consult request.
--- NOTE | 2018-01-09 12:08 | Cons- Cardiology ---
General Information and HPI Consulting Request Date of Consult: 01/09/18 Requested By: Dieter Ruiz MD Reason for Consult: PAF Source of Information: patient Exam Limitations: no limitations History of Present Illness: Patient is a 76 yo F with history of paroxysmal atrial fibrillation on Eliquis, HFpEF, /AI/MR/TR, ESTEFANIA, pulmonary hypertension, hypertension, GERD and hyperlipidemia who presented with right sharp chest pain. She was in her usual state of health, when she developed pleuritic chest pain. She took Tylenol with improvement. She went to sleep and then awoke again with pain. She then presented to the ER for evaluation. She was found to have a pneumothorax. Patient currently has minimal pain. Allergies/Medications Allergies: Coded Allergies: Estrogens ("GET WACKY" 01/26/16) Home Med List: Allopurinol 100 MG TABLET 1 TAB PO DAILY KIDNEY STONES (Reported) Amlodipine Besylate 2.5 MG TABLET 1 TAB PO QPM Hypertension (Reported) Apixaban (Eliquis) 5 MG TABLET 1 TAB PO BID PE Atorvastatin Calcium (Lipitor) 40 MG TABLET 1 TAB PO DAILY CHOLESTEROL ( Reported) Carvedilol 25 MG TABLET 25 MG PO BID a-fib Furosemide (Lasix) 40 MG TABLET 1 TAB PO DAILY WATER RETENTION (Reported) Irbesartan (Avapro) 300 MG TABLET 0.5 TAB PO DAILY HEART (Reported) Levothyroxine Sodium 175 MCG TABLET 1 TAB PO DAILY AC THYROID (Reported) Omeprazole 20 MG CAPSULE.DR 1 CAP PO DAILY ACID REFLUX (Reported) Current Medications: Current Medications Sig/Nyasia Start time Last Medication Dose Route Stop Time Status Admin Acetaminophen 650 MG Q4P PRN 01/09 0945 AC PO Allopurinol 100 MG DAILY 01/09 1000 AC 01/09 PO 0958 Apixaban 5 MG BID 01/08 2200 AC 01/09 PO 0957 Atorvastatin Calcium 40 MG 1700 01/09 1700 AC PO Azithromycin 500 MG ONCE ONE 01/08 1645 DC 01/08 Dextrose/Water 250 ML IV 01/08 174 2030 Carvedilol 25 MG BID 01/08 2200 AC 01/09 PO 0957 Ceftriaxone Sodium 0 .STK-MED ONE 01/08 2026 DC .ROUTE Ceftriaxone Sodium 1,000 MG ONCE ONE 01/08 1645 DC 01/08 IV 01/08 164 2030 Famotidine 0 .STK-MED ONE 01/08 1203 DC PO Famotidine 20 MG ONCE ONE 01/08 1200 DC 01/08 PO 01/08 1201 1202 Famotidine 20 MG ONCE ONE 01/08 1115 CAN IV 01/08 1116 Furosemide 40 MG DAILY 01/09 1000 AC 01/09 PO 0957 Levothyroxine Sodium 0.175 MG DAILY AC 01/09 0700 AC 01/09 PO 0532 Losartan Potassium 50 MG DAILY 01/09 1015 AC PO Losartan Potassium 100 MG DAILY 01/09 1000 DC PO Metoclopramide HCl 0 .STK-MED ONE 01/08 1203 DC PO Metoclopramide HCl 10 MG ONCE ONE 01/08 1200 DC 01/08 PO 01/08 1201 1202 Metoclopramide HCl 5 MG ONCE ONE 01/08 1115 CAN IV 01/08 1116 Morphine Sulfate 2 MG Q4P PRN 01/09 0945 AC IV Omeprazole 20 MG DAILY 01/09 1000 AC 01/09 PO 0533 Potassium Chloride 40 MEQ AT BEDTIME 01/09 2200 AC PO 01/09 2201 Potassium Chloride 60 MEQ ONCE ONE 01/09 1100 DC PO 01/09 1101 Sodium Chloride 500 ML ONCE ONE 01/08 2100 DC 01/08 IV 01/09 0659 2300 Sodium Chloride 500 ML BOLUS ONE 01/08 2030 CAN IV 01/09 0629 Tramadol HCl 50 MG ONCE ONE 01/08 1300 DC 01/08 PO 01/08 1301 1306 Tramadol HCl 0 .STK-MED ONE 01/08 1300 DC PO Review of Systems Review of Systems: Eyes no blurred or double vision Ears no deafness or ringing Nose and throat no recurrent sinusitis Lungs per history of present illness Heart per history of present illness Abdomen no nausea vomiting Musculoskeletal occasional muscle and joint pains Psych no anxiety or depression Neuro without recurrent headache or seizures Endocrine no heat or cold intolerance Past History Travel History Traveled to [place] past 21 day No Medical History Blood Transfusion Hx: Yes Neurological: NONE EENT: NONE Cardiovascular: AFIB, CHF, hypertension, hyperlipidemia Respiratory: obstructive sleep apnea Gastrointestinal: GERD Hepatic: hepatic steatosis Renal: NONE Musculoskeletal: NONE Psychiatric: NONE Endocrine: hypothyroidism Blood Disorders: NONE Cancer(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 MOTHER FH: atrial fibrillation Relation not specified for: *No pertinent family history Psychosocial History Where Do You Live? Home Services at Home: Home Health Aide Smoking Status: Former Smoker Functional Ability ADLs Independent: dressing, eating, toileting, bathing. Ambulation: independent, cane Exam & Diagnostic Data Vital Signs and I&O Vital Signs Date Time Temp Pulse Resp B/P B/P Pulse O2 O2 Flow FiO2 Mean Ox Delivery Rate 01/09 0957 78 150/80 01/09 0800 Nasal 2.0L Cannula 01/09 0706 98.6 88 20 142/82 98 Nasal Cannula 01/08 2302 93 Nasal 2.0L Cannula 01/08 2237 98.0 103 20 128/70 91 01/08 2153 98.6 121 20 152/88 98 Nasal 2.0L Cannula 01/08 2106 98.2 86 20 154/90 01/08 2040 98.2 126 20 154/90 96 Nasal 2.0L Cannula 01/08 1930 98.5 105 18 155/88 94 Room Air Room Air 01/08 1433 97.1 93 18 142/94 96 Room Air Intake & Output 01/09 1600 01/09 0800 01/09 0000 01/08 1600 01/08 0800 01/08 0000 Intake Total 150 Output Total 400 350 Balance -250 -350 Intake, Oral 150 Output, Urine 400 350 Patient 185 lb Weight Weight Reported by Patient Measurement Method Physical Exam: Patient is a well-developed well-nourished female appearing in no acute distress HEENT is unremarkable Neck is supple there is no JVD Lungs are clear Heart regular rhythm S1 and S2 are normal no murmurs gallops or rubs Abdomen bowel sounds positive Extremities without edema Labs/Linus Results: Laboratory Tests 01/09 01/08 0619 2330 Chemistry Sodium (137 - 145 mmol/L) 143 Potassium (3.5 - 5.1 mmol/L) 3.3 L Chloride (98 - 107 mmol/L) 101 Carbon Dioxide (22 - 30 mmol/L) 32 H Anion Gap (5 - 16) 10 BUN (7 - 17 mg/dL) 19 H Creatinine (0.5 - 1.0 mg/dL) 0.7 Estimated GFR (>60 ml/min) > 60 BUN/Creatinine Ratio (7 - 25 %) 27.1 H Troponin I (< 0.11 ng/ml) < 0.01 < 0.01 Hematology CBC w Diff NO MAN DIFF REQ WBC (4.8 - 10.8 /CUMM) 5.2 RBC (4.20 - 5.40 /CUMM) 3.63 L Hgb (12.0 - 16.0 G/DL) 10.8 L Hct (37 - 47 %) 33.5 L MCV (81.0 - 99.0 FL) 92.5 MCH (27.0 - 31.0 PG) 29.7 MCHC (33.0 - 37.0 G/DL) 32.1 L RDW (11.5 - 14.5 %) 19.9 H Plt Count (130 - 400 /CUMM) 160 MPV (7.4 - 10.4 FL) 9.2 Gran % (42.2 - 75.2 %) 63.4 Lymphocytes % (20.5 - 51.1 %) 25.5 Monocytes % (1.7 - 9.3 %) 9.6 H Eosinophils % (0 - 5 %) 1.2 Basophils % (0.0 - 2.0 %) 0.3 Absolute Granulocytes (1.4 - 6.5 /CUMM) 3.3 Absolute Lymphocytes (1.2 - 3.4 /CUMM) 1.3 Absolute Monocytes (0.10 - 0.60 /CUMM) 0.5 Absolute Eosinophils (0.0 - 0.7 /CUMM) 0.1 Absolute Basophils (0.0 - 0.2 /CUMM) 0 01/08 1115 Chemistry Sodium (137 - 145 mmol/L) 143 Potassium (3.5 - 5.1 mmol/L) 3.5 Chloride (98 - 107 mmol/L) 99 Carbon Dioxide (22 - 30 mmol/L) 36 H Anion Gap (5 - 16) 8 BUN (7 - 17 mg/dL) 26 H Creatinine (0.5 - 1.0 mg/dL) 0.8 Estimated GFR (>60 ml/min) > 60 BUN/Creatinine Ratio (7 - 25 %) 32.5 H Glucose (65 - 99 mg/dL) 97 Calcium (8.4 - 10.2 mg/dL) 8.6 Phosphorus (2.5 - 4.5 mg/dL) 3.9 Magnesium (1.6 - 2.3 mg/dL) 1.6 Total Bilirubin (0.2 - 1.3 mg/dL) 0.5 AST (14 - 36 U/L) 15 ALT (9 - 52 U/L) 20 Alkaline Phosphatase (<127 U/L) 98 Troponin I (< 0.11 ng/ml) < 0.01 [id number] Pept (<125 pg/mL) 3660 H Total Protein (6.3 - 8.2 g/dL) 6.6 Albumin (3.5 - 5.0 g/dL) 3.3 L Globulin (1.9 - 4.2 gm/dL) 3.3 Albumin/Globulin Ratio (1.1 - 2.2 %) 1.0 L Lipase (23 - 300 U/L) 109 TSH (0.270 - 4.200 uIU/mL) 0.039 L Free T4 (0.78 - 2.44 ng/dL) 1.73 Hematology CBC w Diff NO MAN DIFF REQ WBC (4.8 - 10.8 /CUMM) 5.2 RBC (4.20 - 5.40 /CUMM) 3.72 L Hgb (12.0 - 16.0 G/DL) 11.1 L Hct (37 - 47 %) 34.3 L MCV (81.0 - 99.0 FL) 92.2 MCH (27.0 - 31.0 PG) 30.0 MCHC (33.0 - 37.0 G/DL) 32.5 L RDW (11.5 - 14.5 %) 19.2 H Plt Count (130 - 400 /CUMM) 173 MPV (7.4 - 10.4 FL) 8.7 Gran % (42.2 - 75.2 %) 65.6 Lymphocytes % (20.5 - 51.1 %) 24.0 Monocytes % (1.7 - 9.3 %) 9.2 Eosinophils % (0 - 5 %) 0.3 Basophils % (0.0 - 2.0 %) 0.9 Absolute Granulocytes (1.4 - 6.5 /CUMM) 3.4 Absolute Lymphocytes (1.2 - 3.4 /CUMM) 1.3 Absolute Monocytes (0.10 - 0.60 /CUMM) 0.5 Absolute Eosinophils (0.0 - 0.7 /CUMM) 0 Absolute Basophils (0.0 - 0.2 /CUMM) 0 Diagnostic Data EKG Results EKG atrial fibrillation with controlled ventricular response CXR Results IMPRESSION: Small right hydropneumothorax, without significant change from today's earlier exam. Other Results CT scan IMPRESSION: 1. There is a trace right pneumothorax. 2. There is a small right pleural effusion which is similar. The left pleural effusion has resolved. Basilar atelectasis/consolidation is slightly improved. 3. There is yesj-kk-ebcxwsey centrilobular emphysema and a few pulmonary nodules as detailed in the comments, the majority of which appear stable. A ground-glass nodule at the left lung apex is less conspicuous. Assessment/Plan Assessment/Plan 1. Paroxysmal atrial fibrillation on Eliquis currently in atrial fibrillation with controlled ventricular response 2. Hypertension 3. Chronic right pneumothorax currently being managed medically 4. Mild mitral and Aortic stenosis 5. Heart failure with preserved ejection fraction EF 55% by echocardiogram September 2017 6. Pulmonary hypertension 7. Obstructive sleep apnea on CPAP 8. Tongue cancer status post resection Recommendations 1. Continue current medications including liquids for stroke prevention. 2. Management of chronic pneumothorax per doctor's David 3. Continue to monitor on telemetry Thank you for allowing [facility] to participate in the care of your patient. Consult Acknowledgment - Thank you for your consult request.
[2018-01-09 14:31] VITALS: BP 138/90
--- NOTE | 2018-01-09 14:46 | Cons- Thoracic Surgery ---
General Information and HPI Consulting Request Date of Consult: 01/09/18 Requested By: Sara CAPUTO,Dieter Reason for Consult: Evaluate hydropneumothorax Source of Information: patient, old records, PCP Exam Limitations: no limitations History of Present Illness: The patient is well known to me. I've been following her for the past year and a half for incidental lung nodules. Her CT findings have been fairly dynamic with occasional new nodules that have subsequently resolved. On her most recent evaluation there was no concern for any significant neoplastic process. Since her last reevaluation by me she had a hospitalization with biliary sepsis. She underwent cholecystectomy at that time. She developed bilateral pleural effusions during the course of that hospitalization. She is admitted today with right pleuritic chest pain. This is pain that she had at the time of her surgery and it came once again over the past 24 hours. She was brought into the hospital and found on CT scan to have a persistent right pneumothorax along with some associated intrapleural air. Cardiothoracic surgical evaluation is asked for help in management and treatment. Allergies/Medications Allergies: Coded Allergies: Estrogens ("GET WACKY" 01/26/16) Home Med List: Allopurinol 100 MG TABLET 1 TAB PO DAILY KIDNEY STONES (Reported) Amlodipine Besylate 2.5 MG TABLET 1 TAB PO QPM Hypertension (Reported) Apixaban (Eliquis) 5 MG TABLET 1 TAB PO BID PE Atorvastatin Calcium (Lipitor) 40 MG TABLET 1 TAB PO DAILY CHOLESTEROL ( Reported) Carvedilol 25 MG TABLET 25 MG PO BID a-fib Furosemide (Lasix) 40 MG TABLET 1 TAB PO DAILY WATER RETENTION (Reported) Irbesartan (Avapro) 300 MG TABLET 0.5 TAB PO DAILY HEART (Reported) Levothyroxine Sodium 175 MCG TABLET 1 TAB PO DAILY AC THYROID (Reported) Omeprazole 20 MG CAPSULE.DR 1 CAP PO DAILY ACID REFLUX (Reported) Current Medications: Current Medications Sig/Nyasia Start time Last Medication Dose Route Stop Time Status Admin Acetaminophen 650 MG Q4P PRN 01/09 0945 AC PO Allopurinol 100 MG DAILY 01/09 1000 AC 01/09 PO 0958 Apixaban 5 MG BID 01/08 2200 AC 01/09 PO 0957 Atorvastatin Calcium 40 MG 1700 01/09 1700 AC PO Azithromycin 500 MG ONCE ONE 01/08 1645 DC 01/08 Dextrose/Water 250 ML IV 01/08 1744 2030 Carvedilol 25 MG BID 01/08 2200 AC 01/09 PO 0957 Ceftriaxone Sodium 0 .STK-MED ONE 01/08 2026 DC .ROUTE Ceftriaxone Sodium 1,000 MG ONCE ONE 01/08 1645 DC 01/08 IV 01/08 164 2030 Furosemide 40 MG DAILY 01/09 1000 AC 01/09 PO 0957 Levothyroxine Sodium 0.15 MG DAILY AC 01/10 0700 UNVr PO Levothyroxine Sodium 0.175 MG DAILY AC 01/09 0700 DC 01/09 PO 0532 Losartan Potassium 50 MG DAILY 01/09 1015 AC 01/09 PO 1218 Losartan Potassium 100 MG DAILY 01/09 1000 DC PO Morphine Sulfate 2 MG Q4P PRN 01/09 0945 AC IV Omeprazole 20 MG DAILY 01/09 1000 AC 01/09 PO 0533 Potassium Chloride 40 MEQ AT BEDTIME 01/09 2200 AC PO 01/09 2201 Potassium Chloride 60 MEQ ONCE ONE 01/09 1100 DC 01/09 PO 01/09 1101 1217 Sodium Chloride 500 ML ONCE ONE 01/08 2100 DC 01/08 IV 01/09 0659 2300 Sodium Chloride 500 ML BOLUS ONE 01/08 2030 CAN IV 01/09 0629 Past History Medical History Blood Transfusion Hx: Yes Neurological: NONE EENT: NONE Cardiovascular: AFIB, CHF, hypertension, hyperlipidemia Respiratory: obstructive sleep apnea Gastrointestinal: GERD Hepatic: hepatic steatosis Renal: NONE Musculoskeletal: NONE Psychiatric: NONE Endocrine: hypothyroidism Blood Disorders: NONE Cancer(s): TONGUE CA 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 MOTHER FH: atrial fibrillation Relation not specified for: *No pertinent family history Psychosocial History Where Do You Live? Home Services at Home: Home Health Aide Smoking Status: Former Smoker Functional Ability ADLs Independent: dressing, eating, toileting, bathing. Ambulation: independent, cane Review of Systems Review of Systems: Currently her chest pain has resolved. She is describing no pleuritic pain. She is not significantly dyspneic. She has had no fevers night sweats or chills. She has had no syncope or presyncope. The rest for 12 point review of systems is unremarkable. Exam & Diagnostic Data Vital Signs and I&O Vital Signs Date Time Temp Pulse Resp B/P B/P Pulse O2 O2 Flow FiO2 Mean Ox Delivery Rate 01/09 1431 97.8 90 20 138/90 99 Nasal 2.0L Cannula 01/09 1354 Nasal 2.0L Cannula 01/09 1218 86 150/80 01/09 0957 78 150/80 01/09 0800 Nasal 2.0L Cannula 01/09 0706 98.6 88 20 142/82 98 Nasal Cannula 01/08 2302 93 Nasal 2.0L Cannula 01/08 2237 98.0 103 20 128/70 91 01/08 2153 98.6 121 20 152/88 98 Nasal 2.0L Cannula 01/08 2106 98.2 86 20 154/90 01/08 2040 98.2 126 20 154/90 96 Nasal 2.0L Cannula 01/08 1930 98.5 105 18 155/88 94 Room Air Room Air Intake & Output 01/09 1600 01/09 0800 01/09 0000 01/08 1600 01/08 0800 01/08 0000 Intake Total 150 Output Total 400 350 Balance -250 -350 Intake, Oral 150 Output, Urine 400 350 Patient 185 lb Weight Weight Reported by Patient Measurement Method Physical Exam: Physical examination she is sitting in a chair and appears well. Her skin is warm and well perfused no suspicious lesions noted. Sclerae are anicteric and mucous membranes are moist. There is no cervical or supraclavicular lymphadenopathy. Her breath sounds are diminished at the right base but otherwise clear bilaterally. Her cardiac exam shows an irregular rhythm and rate with no murmurs or sounds. The abdomen is soft and nontender with no masses. The periphery shows no cyanosis clubbing or edema. Her neurologic exam is grossly normal motor and sensory function. Last 24 Hours of Labs: Laboratory Tests 01/09 01/08 0619 2330 Chemistry Sodium (137 - 145 mmol/L) 143 Potassium (3.5 - 5.1 mmol/L) 3.3 L Chloride (98 - 107 mmol/L) 101 Carbon Dioxide (22 - 30 mmol/L) 32 H Anion Gap (5 - 16) 10 BUN (7 - 17 mg/dL) 19 H Creatinine (0.5 - 1.0 mg/dL) 0.7 Estimated GFR (>60 ml/min) > 60 BUN/Creatinine Ratio (7 - 25 %) 27.1 H Troponin I (< 0.11 ng/ml) < 0.01 < 0.01 Hematology CBC w Diff NO MAN DIFF REQ WBC (4.8 - 10.8 /CUMM) 5.2 RBC (4.20 - 5.40 /CUMM) 3.63 L Hgb (12.0 - 16.0 G/DL) 10.8 L Hct (37 - 47 %) 33.5 L MCV (81.0 - 99.0 FL) 92.5 MCH (27.0 - 31.0 PG) 29.7 MCHC (33.0 - 37.0 G/DL) 32.1 L RDW (11.5 - 14.5 %) 19.9 H Plt Count (130 - 400 /CUMM) 160 MPV (7.4 - 10.4 FL) 9.2 Gran % (42.2 - 75.2 %) 63.4 Lymphocytes % (20.5 - 51.1 %) 25.5 Monocytes % (1.7 - 9.3 %) 9.6 H Eosinophils % (0 - 5 %) 1.2 Basophils % (0.0 - 2.0 %) 0.3 Absolute Granulocytes (1.4 - 6.5 /CUMM) 3.3 Absolute Lymphocytes (1.2 - 3.4 /CUMM) 1.3 Absolute Monocytes (0.10 - 0.60 /CUMM) 0.5 Absolute Eosinophils (0.0 - 0.7 /CUMM) 0.1 Absolute Basophils (0.0 - 0.2 /CUMM) 0 Imaging Results: PATIENT: BRITTANY STOVALL PRESENT AGE: 77 PATIENT ACCOUNT NO: [id number] : 42 LOCATION: [facility] ORDERING PHYSICIAN: Roberto Gary MD SERVICE DATE: 01/08/18 EXAM TYPE: CAT - CT CHEST W IV CONTRAST EXAMINATION: CT CHEST WITH CONTRAST CLINICAL INFORMATION: Pneumothorax and follow-up lung mass. COMPARISON: Multiple prior studies, the most recent dated 09/28/2017. TECHNIQUE: Multidetector volumetric CT imaging of the chest was obtained after the administration of 95 mL of Optiray 320 intravenous contrast without immediate adverse reactions. Axial MIP volume rendering provided. Sagittal and coronal reformatted images were obtained. DLP: 371 mGy-cm FINDINGS: LUNGS: There is a trace right pneumothorax possibly related to a bleb or recent biopsy. There is yaob-ih-yfhjgmow centrilobular emphysema. There are several pulmonary nodules including an 8 x 4 mm nodule in the anterior aspect of the right upper lobe and a 7 x 4 mm nodule in the right upper lobe near the minor fissure which appears similar; a 7 mm ground-glass nodule at the left lung apex which is less conspicuous; and a few smaller parenchymal nodules which appears similar. Atelectasis or ill-defined areas of consolidation at the lung bases have improved. MEDIASTINUM: Mild cardiomegaly with biatrial enlargement. No pericardial effusion. PLEURA: There is a small right pleural effusion which is similar. The left pleural effusion has resolved. AXILLA: No lymphadenopathy. UPPER ABDOMEN: Unremarkable. OSSEOUS STRUCTURES: Unremarkable. IMPRESSION: 1. There is a trace right pneumothorax. 2. There is a small right pleural effusion which is similar. The left pleural effusion has resolved. Basilar atelectasis/consolidation is slightly improved. 3. There is grza-dg-boxclfiv centrilobular emphysema and a few pulmonary nodules as detailed in the comments, the majority of which appear stable. A ground-glass nodule at the left lung apex is less conspicuous. DICTATED BY: Holland Cole MD DATE/TIME DICTATED:01/08/182052 STAMP MACHINE SERVICER:CARRILLO DATE/TIME TRANSCRIBED:01/08/182052 CONFIDENTIAL, DO NOT COPY WITHOUT APPROPRIATE AUTHORIZATION. <Electronically signed in Other Vendor System> SIGNED BY: Holland Cole MD [id number] Assessment/Plan Assessment/Plan 77-year-old pleuritic pain and a very tiny pneumothorax on the right side with associated pleural effusion. It is possible that she had a subpleural bleb rupture with a small amount of air in the pneumothorax. There is no indication for any intervention for the air. In regards to the pleural effusion is been present in some form for the last 3 months since her sepsis episode. She has a perfectly normal white blood cell count of 5000 and is afebrile. I see no reason to intervene on this effusion for any concerns of it being infected. I spoke with Dr. Dailey who is her specialty finishing utility person and he is in agreement. I see no indication for any further intervention right now particularly since the patient is on xarelto. I would get a chest x-ray tomorrow to make sure that there is no change with any increase in intrapleural air. Consult Acknowledgment - Thank you for your consult request.
[2018-01-09] MEDS ORDERED: PAIN RELIEF PO (18:54)
[2018-01-09] MEDS ORDERED: LEVOTHYROXINE150 MCG PO (18:54)
--- NOTE | 2018-01-09 18:59 | Patient Discharge Instructions ---
Discharge Instructions General Discharge Information You were seen/treated for: Right sided chest pain from air leak in chest (Pneumothorax) Watch for these problems: Worsening shortness of breath or chest pain Special Instructions: 1. Follow up with your primary care provider within 1 week of discharge. 2. Follow up with your Teacher Lip Reading Dr. Dailey within 1 week of discharge. 3. Follow up with your Technology Sales Consultant Dr. Sweeney within 1 week of discharge. 4. Follow up with your Cardiothoracic surgeon, Dr. Cantu within 1 week of discharge. 5. Your levothyroxine dose has been reduced to 150 mcg daily. Folow up with your primary care provider for any additional adjustment. Diet Continue normal diet: No Recommended Diet: Heart Healthy Activity Full Activity/No Limits: No Activity Self Limited: Yes Acute Coronary Syndrome Inclusion Criteria At DC or during hospital stay patient has or had the following: ACS DIAGNOSIS No Discharge Core Measures Meds if any: Prescribed or Continued at Discharge Meds if any: NOT Prescribed or Continued at Discharge Congestive Heart Failure Inclusion Criteria At DC or during hospital stay patient has or had the following: CHF DIAGNOSIS No Discharge Core Measures Meds if any: Prescribed or Continued at Discharge Meds if any: NOT Prescribed or Continued at Discharge Cerebrovascular accident Inclusion Criteria At DC or during hospital stay patient has or had the following: CVA/TIA Diagnosis No Discharge Core Measures Meds if any: Prescribed or Continued at Discharge Meds if any: NOT Prescribed or Continued at Discharge Venous thromboembolism Inclusion Criteria VTE Diagnosis No VTE Type NONE VTE Confirmed by (Test) NONE Discharge Core Measures - Per Current guidelines, there needs to be overlap - treatment for the first 5 days of Warfarin therapy. - If discharged on Warfarin prior to 5 days of - overlap therapy, the patient will need to be - assessed for post discharge needs including - *Post discharge parental anticoagulation - *Warfarin and/or parental anticoagulation education - *Follow up date to check INR post discharge At least 5 days overlap therapy as Inpatient No Meds if any: Prescribed or Continued at Discharge Note: Overlap Therapy is Warfarin and Anticoagulant Meds if any: NOT Prescribed or Continued at Discharge
[2018-01-09 22:28] VITALS: BP 135/70
[2018-01-10 07:20] VITALS: BP 158/110
--- NOTE | 2018-01-10 07:57 | PN- Pulmonary ---
Subjective HPI/Critical Care Issues: Patient is comfortable but continues to have mild residual right pleuritic chest pain without shortness of breath. Remains afebrile. Oxygen saturations on room air are normal Objective Current Medications: Current Medications Sig/Nyasia Start time Last Medication Dose Route Stop Time Status Admin Acetaminophen 650 MG Q4P PRN 01/09 0945 AC 01/10 PO 0706 Allopurinol 100 MG DAILY 01/09 1000 AC 01/09 PO 0958 Apixaban 5 MG BID 01/08 2200 AC 01/09 PO 2123 Atorvastatin Calcium 40 MG 1700 01/09 1700 AC 01/09 PO 1606 Carvedilol 25 MG BID 01/08 2200 AC 01/09 PO 2124 Furosemide 40 MG DAILY 01/09 1000 AC 01/09 PO 0957 Levothyroxine Sodium 0.15 MG DAILY AC 01/10 0700 AC 01/10 PO 0706 Levothyroxine Sodium 0.175 MG DAILY AC 01/09 0700 DC 01/09 PO 0532 Losartan Potassium 50 MG DAILY 01/09 1015 AC 01/09 PO 1218 Losartan Potassium 100 MG DAILY 01/09 1000 DC PO Magnesium Sulfate 1 GM Q2H 01/09 1845 DC 01/09 Dextrose/Water 100 ML IV 01/09 2244 2219 Morphine Sulfate 2 MG Q4P PRN 01/09 0945 AC IV Omeprazole 20 MG DAILY 01/09 1000 AC 01/10 PO 0706 Potassium Chloride 40 MEQ AT BEDTIME 01/09 2200 DC 01/09 PO 01/09 2201 2124 Potassium Chloride 60 MEQ ONCE ONE 01/09 1100 DC 01/09 PO 01/09 1101 1217 Vital Signs & I&O Last 24 Hrs of Vitals and I&O: Vital Signs Date Time Temp Pulse Resp B/P B/P Pulse O2 O2 Flow FiO2 Mean Ox Delivery Rate 01/10 0720 97.8 92 16 158/110 95 Room Air 01/10 0010 91 92 01/10 0000 CPAP 01/098 98.1 100 24 135/70 99 01/09 2159 73 98 01/09 2124 102 130/72 01/09 1812 20 96 Nasal 2.0L Cannula 01/09 1707 18 93 Room Air 01/09 1600 99 Nasal 2.0L Cannula 01/09 1431 97.8 90 20 138/90 99 Nasal 2.0L Cannula 01/09 1354 Nasal 2.0L Cannula 01/09 1218 86 150/80 01/09 0957 78 150/80 01/09 0800 Nasal 2.0L Cannula Intake & Output 01/10 0800 01/10 0000 01/09 1600 Intake Total 320 560 Output Total 300 Balance 320 260 Intake, IV 200 Intake, Oral 120 560 Output, Urine 300 Her oxygen saturation 95% exam for chest shows decreased breath sounds at the right base there are no wheezes or rubs present cardiac exam shows regular S1 and S2 without murmurs Impression/Plan Impression/Plan Impression/Plan: 77-year-old admitted with pleuritic chest pain likely secondary to a small spontaneous pneumothorax. She remains afebrile with normal white count making intrapulmonary infection or pleural infection. Unlikely Recommendations: Repeat PA and lateral chest x-ray. Patient will need follow-up CT scan in view of head and neck cancer and pulmonary nodules.
[2018-01-10 08:46] VITALS: BP 158/110
--- NOTE | 2018-01-10 08:56 | PN- Housestaff ---
Alex CAPUTO,[facility] 01/10/18 0856: Subjective Follow-up For: Pleuritic chest pain Right hydropneumothorax Complaints: pain scale (0-10) (4/10 right chest) Tele-Events Since Last Visit: Atrial fibrillation. Heart rate 75-87 bpm. Few PVCs. Subjective: Ms. Pritchard states that her right-sided pleuritic chest pain is improved. It is a maximum of 4/10 and is relieved by Tylenol. She denies shortness of breath, cough, fevers, chills or malaise. She denies palpitations, lightheadedness, but has orthopnea which is chronic and unchanged. Review of Systems Constitutional: Reports: see HPI. Cardiovascular: Reports: chest pain, orthopena. Denies: edema, palpitations. Respiratory: Denies: cough, short of breath, sputum production. Gastrointestinal: Denies: abdominal pain, constipation, diarrhea. Genitourinary: Denies: discharge, frequency, hematuria. Musculoskeletal: Denies: back pain, joint swelling, muscle pain. Objective Last 24 Hrs of Vital Signs/I&O Vital Signs Date Time Temp Pulse Resp B/P B/P Pulse O2 O2 Flow FiO2 Mean Ox Delivery Rate 01/10 0846 97.8 92 158/110 01/10 0846 92 158/110 01/10 0720 97.8 92 16 158/110 95 Room Air 01/10 0010 91 92 01/10 0000 CPAP 01/09 2228 98.1 100 24 135/70 99 01/09 2159 73 98 01/09 2124 102 130/72 01/09 1812 20 96 Nasal 2.0L Cannula Intake & Output 01/10 1600 01/10 0800 01/10 0000 Intake Total 120 320 Output Total 300 Balance 120 20 Intake, IV 200 Intake, Oral 120 120 Output, Urine 300 Physical Exam General Appearance: Alert, Oriented X3, Cooperative, No Acute Distress Skin: No Rashes Skin Temp/Moisture Exam: Warm/Dry Sepsis Skin Exam (color): Normal for Ethnicity HEENT: Atraumatic Neck: Supple, No JVD, No thryomegaly, +2 Carotid Pulse wo Bruit, No LAD Lymphatic: Cervical nl Cardiovascular: Regular Rate, Normal S1, Normal S2, No Murmurs Lungs: Clear to Auscultation, Normal Air Movement Abdomen: Normal Bowel Sounds, Soft, No Tenderness, No Hepatospenomegaly, No Masses Neurological: Normal Speech, Strength at 5/5 X4 Ext, Normal Tone, Cranial Nerves 3-12 NL Extremities: No Edema, Normal Pulses Current Medications: Current Medications Sig/Nyasia Start time Last Medication Dose Route Stop Time Status Admin Acetaminophen 650 MG .STK-MED ONE 01/10 0705 DC PO 01/10 0706 Acetaminophen 650 MG Q4P PRN 01/09 0945 DCD 01/10 PO 0706 Allopurinol 100 MG DAILY 01/09 1000 DCD 01/10 PO 0846 Apixaban 5 MG BID 01/08 2200 DCD 01/10 PO 0846 Atorvastatin Calcium 40 MG 1700 01/09 1700 DCD 01/09 PO 1606 Carvedilol 25 MG BID 01/08 2200 DCD 01/10 PO 0846 Furosemide 40 MG DAILY 01/09 1000 DCD 01/10 PO 0846 Levothyroxine Sodium 0.15 MG DAILY AC 01/10 0700 DCD 01/10 PO 0706 Losartan Potassium 50 MG DAILY 01/09 1015 DCD 01/10 PO 0846 Magnesium Sulfate 1 GM Q2H 01/09 1845 DC 01/09 Dextrose/Water 100 ML IV 01/09 2244 2219 Morphine Sulfate 2 MG Q4P PRN 01/09 0945 DCD IV Omeprazole 20 MG DAILY 01/09 1000 DCD 01/10 PO 0706 Potassium Chloride 40 MEQ AT BEDTIME 01/09 2200 DC 01/09 PO 01/09 2201 2124 Last 24 Hrs of Lab/Linus Results Last 24 Hrs of Labs/Mics: Laboratory Tests 01/10/18 0622: Anion Gap 10, Estimated GFR > 60, BUN/Creatinine Ratio 22.5 Assessment/Plan Assessment: Ms. Pritchard is a 77 year old woman with past medical history significant for paroxysmal atrial fibrillation on Xarelto, HFpEF, ESTEFANIA on CPAP, moderate TR and pulmonary hypertension, HTN, HLD, GERD, and tongue cancer s/p resection and chemoradiotherapy (Dr. Silva ) who presented with sudden onset right sided chest pain while she was sitting at rest. She was hypoxemic to 88% on room air while going to her CT scan and had to be placed on oxygen by nasal canula 2L. Her chest X-ray and chest CT imaging shows an old right sided effusiona and a new small right pneumothorax. She had a transient episode of rapid ventricular rate in the ER that occured in the setting of late administration of her carvedilol. She is being evaluated and managed for an acute spontaneous pneumothorax probably related to rupture of emphysematous bleb. Assessment and plan: 1. Acute hypoxic respiratory failure-resolved * Patient is able to go off oxygen and saturating well 95 %on room air * Discontinue oxygen therapy 2. Right sided chest pain secondary to small hydropneumothorax- likely from rupture of emphysematous bleb * Pulmonology emergency management consultant input appreciated * Repeat chest x-ray this morning shows no change in size of small right pneumothorax * Patient can be discharged to follow-up with pulmonology and CT surgery as outpatient * Pain control with tylenol prn on discharge 3. Afib with transient rapid ventricular rate-resolved * Normal episodes of rapid ventricular rate 2 are detected on telemetry * Patient is stable for discharge and follow-up with marble coper * Continue carvedilol 25 mg BID, and continue anticoagulation with eliquis * Serial EKG's and troponins negative for an acute coronary syndrome 4. Emphysema with no evidence of exacerbation * Stable 5. Heart failure with preserved ejection fraction * Continue PO lasix 40 mg daily * ProBNP is elevated at 3660, but patient is not clinically in heart failure 6. ESTEFANIA on CPAP * Patient can have CPAP at night 7. Lung nodules * Stable appearance * Outpatient follow up with cardiothoracic surgeon, Dr. Cantu 8. Hypothyroidism * TSH low 0.039, Free T4 normal * Will reduce synthroid dose to 0.15 mg daily on discharge DVT prophylaxis PO Apixaban Diet Heart Healthy diet Code status Problem List: 1. Spontaneous pneumothorax Pain Ratin Pain Location: Right chest right chest Pain Goal: Pain 4 or less Pain Plan: Tylenol when necessary Tomorrow's Labs & Rationales: None needed DVT/Prophylaxis: pharmacological Discharge Plan Discharge Disposition: home Dieter Ruiz MD 01/10/18 1053: Attending MD Review Statement Attending Statement Attending MD Statement: examined this patient, discuss w/resident/PA/INSURANCE LOSS ADJUSTER, agreed w/resident/PA/INSURANCE LOSS ADJUSTER, reviewed EMR data (avail), discussed with nursing, discussed with case mgmt, amended to note Attending Assessment/Plan: Patient seen and examined. Resting comfortably not in any acute distress. No issues overnight reported by nursing staff. No events on telemetry monitoring. She reported mild chest pain this repeat chest x-ray today shows no changes in the small right-sided pneumothorax. She has been cleared by the pulmonology service for discharge today. She will be following up with the pulmonology service as an outpatient for monitoring of her pulmonary nodules. She has been advised to utilize Tylenol as needed if she develops a right-sided chest pain. TSH was found to be suppressed on admission. Her Synthroid dose was reduced to 150 mcg daily. She is to follow-up with her primary care provider as an outpatient for monitoring of her TSH level.
--- NOTE | 2018-01-10 09:29 | RADIOLOGY REPORT ---
EXAMINATION: XR CHEST CLINICAL INFORMATION: To assess the size of pneumothorax if any changes. Shortness of breath COMPARISON: 01/08/2018 TECHNIQUE: 2 views of the chest were obtained. FINDINGS: The image quality is poor. The lung volumes are low. The pneumothorax seen on the prior study as only faintly seen, decreased in size and conspicuity from the prior study. Small right pleural effusion persists. There is bronchovascular crowding. No left pneumothorax or pleural effusion. No focal consolidation or mass. Tortuous aorta again seen. Mild cardiomegaly persists. IMPRESSION: Trace right apical pneumothorax, decreased in size and conspicuity from the prior study. Small right pleural effusion present as well (hydropneumothorax).
--- NOTE | 2018-01-10 11:35 | Discharge Summary ---
Visit Information Visit Dates Admission Date: 01/08/18 Discharge Date: 01/10/18 Hospital Course Course Attending Physician: Dieter Ruiz MD Primary Care Physician: Josiah Chavez MD Consulting Request: 1 Consulting Specialty: Pulmonary Disease Consulting Physician: Dr. Dailey Reason for Consult: pneumothorax with background emphysema/COPD Consulting Request: 2 Consulting Specialty: Thoracic/Vascular Surgery Consulting Physician: Dr. Cantu Reason for Consult: spontaneous pneumothorax Consulting Request: 3 Consulting Specialty: Cardiology Consulting Physician: Dr. Salinas Reason for Consult: atrial fibrillation with transient episode of rapid ventricular rate Hospital Course: Ms. Pritchard is a 77 year-old woman with a past medical history significant for paroxysmal atrial fibrillation on Xarelto, heart failure with preserved ejection fraction, obstructive sleep apnea on CPAP, moderate tricuspid regurgitation and pulmonary hypertension, HTN, HLD, GERD, and tongue cancer s/p resection and chemoradiotherapy (Dr. Silva ). The patient was last hospitalized in [facility] on September 2017 with sepsis secondary to severe acute on chronic cholecystitis with subhepatic abscess found between the gallbladder and liver during cholecystectomy, afib with RVR, and an acute right pulmonary embolism. After discharge the patient went to rehabiliation at [facility] and was feeling better subjectively. The patient was then treated here for a right sided pneumonia in October 2017. The patient then returned to her usual state of health until a day prior to presentation when she suddenly developed right sided chest pain while sitting and watching the television. The chest pain was sudden onset, intermittent, 5-6 in severity, aching and squeezing in nature, and radiated up towards her right shoulder. Her pain was aggravated by deep respiration and moderately relieved with Tylenol. She was able to take tylenol in the evening, but her sleep was interrupted by awakenings due to pain overnight. In the morning, her pain had become severe, 9/10 intensity with some dyspnea and she came to the ER for evaluation. Vital signs in the ER showed a temperature of 90 8.2F, pulse of 89 bpm, respiratory rate of 16/minute, blood pressure of 159/95 mmHg, pulse oximetry of 97% on room air. Physical Exam at presentation was as follows: General Appearance: Alert, Oriented X3, Cooperative, No Acute Distress Cardiovascular: Normal S1, Normal S2, No Murmurs, irregularly irregular Lungs: diminished breath sounds particularly in bibasilar regions Abdomen: Normal Bowel Sounds, Soft, No Tenderness, No Masses Extremities: No Clubbing, No Cyanosis, Normal Pulses, 1+ pitting edema b/l Her chemistries were significant for CO2 of 36 mmol/L, and potassium of 3.5 mmol /L. A CBC showed normal white count of 5.2, hemoglobin of 11.1, and hematocrit of 34.3%. However she became hypoxemic to 88% on room air while going to her CT scan and had to be placed on oxygen by nasal canula 2L and her O2 sats improved to 97%. Her chest X-ray and chest CT showed an old right sided pleural effusion and a new small right pneumothorax-possibly from rupture of a pleural bleb. CT chest with IV contrast also showed multiple pulmonary nodules (report attached). A doppler ultrasound was negative for DVT. She received 1 dose of ceftriaxone and azithromycin for concerns of pneumonia but this was quickly discontinued as the patient showed no sign of infection or empyema while on admission. She was reviewed by optical goods drilling machine operator Dr. Dailey and cardiothoracic surgeon Dr. Cantu and it was felt that the right pneumothorax was likely due to rupture of a pleural bleb from her emphysema/COPD. The pneumothorax was small and it was decided to manage it conservatively with serial imaging and pain control. She maintained adequate oxygenation while on admission and eventually was taken off oxygen with satisfactory oxygen saturation. Repeat chest x-ray done 48 hours after admission showed stable appearance of the small right pneumothorax and she was discharged home to follow -up with her optical goods drilling machine operator and her cardiothoracic surgeon Dr. Cantu as an outpatient. She had a transient episode of rapid ventricular rate in the setting of her known atrial fibrillation that occured in the setting of late administration of her carvedilol. She had no further tachyarrhythmias and was reviewed by manager orange Dr. Salinas with no change to her medication regimen and she continued her Eliqis 5 mg BID for anticoagulation. She was found to have suppressed TSH of 0.039uIU/L while on admission within normal free T4 of 1.73. On account of this, her levothyroxine dose was reduced from 0.175 mg daily to 0.15 mg daily. Allergies: Coded Allergies: Estrogens ("GET WACKY" 01/26/16) Pertinent Lab Results: PATIENT: BRITTANY PRITCHARD PRESENT AGE: 77 PATIENT ACCOUNT NO: [id number] : 42 LOCATION: [facility] ORDERING PHYSICIAN: Roberto Gary MD SERVICE DATE: 01/08/18 EXAM TYPE: CAT - CT CHEST W IV CONTRAST EXAMINATION: CT CHEST WITH CONTRAST CLINICAL INFORMATION: Pneumothorax and follow-up lung mass. COMPARISON: Multiple prior studies, the most recent dated 09/28/2017. TECHNIQUE: Multidetector volumetric CT imaging of the chest was obtained after the administration of 95 mL of Optiray 320 intravenous contrast without immediate adverse reactions. Axial MIP volume rendering provided. Sagittal and coronal reformatted images were obtained. DLP: 371 mGy-cm FINDINGS: LUNGS: There is a trace right pneumothorax possibly related to a bleb or recent biopsy. There is [id number] centrilobular emphysema. There are several pulmonary nodules including an 8 x 4 mm nodule in the anterior aspect of the right upper lobe and a 7 x 4 mm nodule in the right upper lobe near the minor fissure which appears similar; a 7 mm ground-glass nodule at the left lung apex which is less conspicuous; and a few smaller parenchymal nodules which appears similar. Atelectasis or ill-defined areas of consolidation at the lung bases have improved. MEDIASTINUM: Mild cardiomegaly with biatrial enlargement. No pericardial effusion. PLEURA: There is a small right pleural effusion which is similar. The left pleural effusion has resolved. AXILLA: No lymphadenopathy. UPPER ABDOMEN: Unremarkable. OSSEOUS STRUCTURES: Unremarkable. IMPRESSION: 1. There is a trace right pneumothorax. 2. There is a small right pleural effusion which is similar. The left pleural effusion has resolved. Basilar atelectasis/consolidation is slightly improved. 3. There is [id number] centrilobular emphysema and a few pulmonary nodules as detailed in the comments, the majority of which appear stable. A ground-glass nodule at the left lung apex is less conspicuous. Disposition Summary Disposition Principal Diagnosis: 1. Acute hypoxic respiratory failure 2. Right sided chest pain secondary to spontaneous pneumothorax- likely from rupture of emphysematous bleb 3. Afib with transient rapid ventricular rate 4. Emphysema with no evidence of exacerbation Additional Diagnosis: 5. Heart failure with preserved ejection fraction 6. ESTEFANIA on CPAP 7. Lung nodules 8. Hypothyroidism 9. Old right pleural effusion Discharge Disposition: home health services Discharge Instructions General Discharge Information Code Status: Full Code Patient's Diet: Heart healthy diet Patient's Activity: Self-limited activity Follow-Up Instructions/Appts: 1. Follow up with your primary care provider within 1 week of discharge. 2. Follow up with your Client Portfolio Manager Dr. Dailey within 1 week of discharge. 3. Follow up with your Engraving Patternmaker Dr. Sweeney within 1 week of discharge. 4. Follow up with your Cardiothoracic surgeon, Dr. Cantu within 1 week of discharge. 5. Her levothyroxine dose has been reduced to 150 mcg daily. She should follow up with her primary care provider for any additional dosage adjustment. 6. Patient will need follow-up CT scan of her chest by her primary care provider , Client Portfolio Manager and cardiothoracic surgeon to monitor her pulmonary nodules in view of her past history of head and neck cancer. Medications at Discharge Discharge Medications: Stop taking the following medications: Levothyroxine Sodium (Levothyroxine Sodium) 175 MCG TABLET ORAL DAILY BEFORE BREAKFAST Continue taking these medications: Irbesartan (Avapro) 300 MG TABLET 0.5 Tablet ORAL DAILY Comments: NOT GIVEN IN HOSPITAL Allopurinol (Allopurinol) 100 MG TABLET 1 Tablet ORAL DAILY Comments: Last Taken: 01/10/18 Time: 0846 Atorvastatin Calcium (Lipitor) 40 MG TABLET 1 Tablet ORAL DAILY Comments: Last Taken: 01/09/18 Time: 1606 Omeprazole (Omeprazole) 20 MG CAPSULE.DR 1 Capsule ORAL DAILY Comments: Last Taken: 01/10/18 Time: 0706 Amlodipine Besylate (Amlodipine Besylate) 2.5 MG TABLET 1 Tablet ORAL Every night Qty = 30 Comments: NOT GIVEN IN HOSPITAL Carvedilol (Carvedilol) 25 MG TABLET 25 Milligram ORAL TWICE DAILY Days = 30 Comments: Last Taken: 01/10/18 Time: 0846 Apixaban (Eliquis) 5 MG TABLET 1 Tablet ORAL TWICE DAILY Days = 30 Comments: Last Taken: 01/10/18 Time: 0846 Furosemide (Lasix) 40 MG TABLET 1 Tablet ORAL DAILY Comments: Last Taken: 01/10/18 Time: 0846 IV GIVEN IN HOSPITAL Start taking the following new medications: Acetaminophen (Pain Relief 8HR) 650 MG TABLET.ER 1 Tablet ORAL EVERY 8 HOURS NEEDED as needed for Pain Qty = 30 No Refills Instructions: . Comments: Last Taken: 01/10/18 Time: 705 Levothyroxine Sodium (Levothyroxine Sodium) 150 MCG TABLET 1 Tablet ORAL DAILY Qty = 30 No Refills Instructions: . Comments: Last Taken: 01/10/18 Time: 705 Copies To: Ashlie CAPUTO,[place]; Brad CAPUTO,[place]ens [place]; Kathy CAPUTO,Josiah Monte[place]; Alondra Horner MD ,Daniel Aguilera Attending MD Review Statement Documenting Attending: Dieter Ruiz MD Other Findings: Discharged in stable condition
[2018-01-10] MEDS ORDERED: LEVOTHYROXINE150 MCG PO (11:39)
[2018-01-10] MEDS ORDERED: PAIN RELIEF PO (11:39)
--- NOTE | 2018-01-10 11:46 | PN- Cardiology ---
Subjective Subjective: The patient is awake, alert The events of the last 24 hours as well as telemetry were reviewed. Review of Systems: The review of systems is negative for chest pains, palpitations nor lightheadedness. The remainder of the 14 point review of systems is noncontributory with the exception of above. Objective Vital Signs and I&Os Vital Signs Date Time Temp Pulse Resp B/P B/P Pulse O2 O2 Flow FiO2 Mean Ox Delivery Rate 01/10 0846 97.8 92 158/110 01/10 0846 92 158/110 01/10 0720 97.8 92 16 158/110 95 Room Air 01/10 0010 91 92 01/10 0000 CPAP 01/09 2228 98.1 100 24 135/70 99 01/09 2159 73 98 01/09 2124 102 130/72 01/09 1812 20 96 Nasal 2.0L Cannula 01/09 1707 18 93 Room Air 01/09 1600 99 Nasal 2.0L Cannula 01/09 1431 97.8 90 20 138/90 99 Nasal 2.0L Cannula 01/09 1354 Nasal 2.0L Cannula 01/09 1218 86 150/80 Intake & Output 01/10 1600 01/10 0800 01/10 0000 01/09 1600 01/09 0800 01/09 0000 Intake Total 120 320 560 150 Output Total 300 400 350 Balance 120 320 260 -250 -350 Intake, IV 200 Intake, Oral 120 120 560 150 Output, Urine 300 400 350 Patient 185 lb Weight Weight Reported by Patient Measurement Method Physical Exam: General: Nontoxic, no apparent distress. HEENT: Sclera and conjunctiva within normal limits, without xanthelasmas. Neck: Carotids 2+ without bruits. Respiratory: Scattered rhonchi, air movement is good, without accessory respiratory muscle use. Heart: Regular rate and rhythm, 2/6 systolic ejection murmur at the right sternal border, without JVD. Abdomen: Soft, nontender, no masses, normoactive bowel sounds. Extremities: Without clubbing, cyanosis, without edema. Neuro: Nonfocal exam, strength, 5 out of 5 Skin: Within normal limits without lesions. Psych: Mood and affect: Normal Current Medications: Current Medications Sig/Nyasia Start time Last Medication Dose Route Stop Time Status Admin Acetaminophen 650 MG Q4P PRN 01/09 0945 AC 01/10 PO 0706 Allopurinol 100 MG DAILY 01/09 1000 AC 01/10 PO 0846 Apixaban 5 MG BID 01/08 2200 AC 01/10 PO 0846 Atorvastatin Calcium 40 MG 1700 01/09 1700 AC 01/09 PO 1606 Carvedilol 25 MG BID 01/08 2200 AC 01/10 PO 0846 Furosemide 40 MG DAILY 01/09 1000 AC 01/10 PO 0846 Levothyroxine Sodium 0.15 MG DAILY AC 01/10 0700 AC 01/10 PO 0706 Levothyroxine Sodium 0.175 MG DAILY AC 01/09 0700 DC 01/09 PO 0532 Losartan Potassium 50 MG DAILY 01/09 1015 AC 01/10 PO 0846 Magnesium Sulfate 1 GM Q2H 01/09 1845 DC 01/09 Dextrose/Water 100 ML IV 01/09 2244 2219 Morphine Sulfate 2 MG Q4P PRN 01/09 0945 AC IV Omeprazole 20 MG DAILY 01/09 1000 AC 01/10 PO 0706 Potassium Chloride 40 MEQ AT BEDTIME 01/09 2200 DC 01/09 PO 01/09 2201 2124 Results Last 48 Hrs of Labs/Mics: Laboratory Tests 01/10/18 0622: Anion Gap 10, Estimated GFR > 60, BUN/Creatinine Ratio 22.5 01/09/18 0619: Anion Gap 10, Estimated GFR > 60, BUN/Creatinine Ratio 27.1 H, Magnesium 1.5 L , Troponin I < 0.01, CBC w Diff NO MAN DIFF REQ, RBC 3.63 L, MCV 92.5, MCH 29.7 , MCHC 32.1 L, RDW 19.9 H, MPV 9.2, Gran % 63.4, Lymphocytes % 25.5, Monocytes % 9.6 H, Eosinophils % 1.2, Basophils % 0.3, Absolute Granulocytes 3.3, Absolute Lymphocytes 1.3, Absolute Monocytes 0.5, Absolute Eosinophils 0.1, Absolute Basophils 0 01/08/18 2330: Troponin I < 0.01 Assessment/Plan Assessment/Plan 1. Paroxysmal atrial fibrillation on Eliquis currently in atrial fibrillation with controlled ventricular response 2. Hypertension 3. Chronic right pneumothorax currently being managed medically 4. Mild mitral and Aortic stenosis 5. Heart failure with preserved ejection fraction EF 55% by echocardiogram September 2017 6. Pulmonary hypertension 7. Obstructive sleep apnea on CPAP 8. Tongue cancer status post resection The patient's blood pressures are suboptimally controlled; however, appear to have improved control as an outpatient. We will continue her outpatient regimen and further adjust as an outpatient. Continue telemetry? No
== END 2018-01-10 13:43 | disposition home health service (06) | DRG 199 ==
LOC: ERH 10:39 → 1NO 16:43 → ERHI 16:43 → CANRESERV 17:57 → ENRESERV 17:57 → ERHI 19:24 → ENRESERV 21:36 → 1NO 22:24 → ENPENDDIS 01-10 11:39 → ENTRNSPT 01-10 13:36 → EDTRNSPTSTS 01-10 13:39 → EDTRNSPT 01-10 13:39 → 1NO 01-10 13:43 → CMPTRNSPT 01-10 13:50
PROVIDERS: Physician Assistant; Student in an Organized Health Care Education/Training Program
DX: J93.9 Pneumothorax, unspecified (principal); J96.01 Acute respiratory failure with hypoxia; K75.0 Abscess of liver; I11.0 Hypertensive heart disease with heart failure; R06.89 Other abnormalities of breathing; I50.32 Chronic diastolic (congestive) heart failure; I27.20 Pulmonary hypertension, unspecified; I48.0 Paroxysmal atrial fibrillation; I07.1 Rheumatic tricuspid insufficiency; Z79.01 Long term (current) use of anticoagulants; G47.33 Obstructive sleep apnea (adult) (pediatric); J43.9 Emphysema, unspecified; K21.9 Gastro-esophageal reflux disease without esophagitis; E78.5 Hyperlipidemia, unspecified; Z90.49 Acquired absence of other specified parts of digestive tract; Z92.21 Personal history of antineoplastic chemotherapy; Z85.810 Personal history of malignant neoplasm of tongue; K76.0 Fatty (change of) liver, not elsewhere classified; E03.9 Hypothyroidism, unspecified; M10.9 Gout, unspecified; Z87.891 Personal history of nicotine dependence; I35.0 Nonrheumatic aortic (valve) stenosis
CPT/HCPCS: 1NSP; 36415; 36592; 71046; 82436; 87040; 93005; 93010; 93970; J0456; J0696; J3490; J7060